=== PATIENT | male | born 1935 | race Caucasian/White ===

== ENCOUNTER 2023-03-25 10:13 | Emergency (ER) | payer MEDICARE, BC ==
--- NOTE | 2023-03-25 10:52 | ED ---
Male Urogenital HPI - General Chief complaint: Urogenital Stated complaint: Problem urinating Time Seen by Provider: 03/25/23 10:19 Source: patient, RN notes reviewed Limitations: no limitations - History of Present Illness Initial comments: 87-year-old male presents emergency Department chief complaint of unable to urinate. Patient states he started having some urges of the last few days but states since last night he has had no urine output. Patient denies a history of UTI denies a history of BPH. Patient states his pressure again is unable to urinate denies fevers or chills no back pain no flank pain. - Related Data Previous Rx's Medication Instructions Recorded Tamsulosin [Flomax] 0.4 mg PO DAILY #14 cap 03/25/23 Allergies Allergy/AdvReac Type Severity Reaction Status Date / Time No Known Allergies Allergy Verified 03/25/23 10:18 Review of Systems ROS Statement: Those systems with pertinent positive or pertinent negative responses have been documented in the HPI. ROS Other: All systems not noted in ROS Statement are negative. Past Medical History Past Medical History: Diabetes Mellitus, Hypertension History of Any Multi-Drug Resistant Organisms: None Reported Past Surgical History: Hernia Repair Past Psychological History: No Psychological Hx Reported Smoking Status: Never smoker Past Alcohol Use History: None Reported Past Drug Use History: None Reported General Exam Limitations: no limitations General appearance: alert, in no apparent distress Head exam: Present: atraumatic, normocephalic, normal inspection Respiratory exam: Present: normal lung sounds bilaterally. Absent: respiratory distress, wheezes, rales, rhonchi, stridor Cardiovascular Exam: Present: regular rate, normal rhythm, normal heart sounds. Absent: systolic murmur, diastolic murmur, rubs, gallop, clicks GI/Abdominal exam: Present: soft, distended, tenderness, normal bowel sounds. Absent: guarding, rebound, rigid Back exam: Absent: CVA tenderness (R), CVA tenderness (L) Course Vital Signs 03/25/23 10:15 Temperature 98.1 F Pulse Rate 99 Respiratory 20 Rate Blood Pressure 163/85 O2 Sat by Pulse 96 Oximetry Medical Decision Making - Medical Decision Making Was pt. sent in by a medical professional or institution (, PA, FEEDER LOADER, urgent care, hospital, or correction...) When possible be specific @ -No Did you speak to anyone other than the patient for history (EMS, parent, family, police, friend...)? What history was obtained from this source @ -No Did you review nursing and triage notes (agree or disagree)? Why? @ -I reviewed and agree with nursing and triage notes Were old charts reviewed (outside hosp., previous admission, EMS record, old EKG, old radiological studies, urgent care reports/EKG's, correction records)? Report findings @ -No old charts were reviewed Differential Diagnosis (chest pain, altered mental status, abdominal pain women, abdominal pain men, vaginal bleeding, weakness, fever, dyspnea, syncope, headache, dizziness, GI bleed, back pain, seizure, CVA, palpatations, mental health, musculoskeletal)? @ -UTI, urinary retention EKG interpreted by me (3pts min.). @ -None X-rays interpreted by me (1pt min.). @ -None done CT interpreted by me (1pt min.). @ -None done U/S interpreted by me (1pt. min.). @ -None done What testing was considered but not performed or refused? (CT, X-rays, U/S, labs)? Why? @ -None What meds were considered but not given or refused? Why? @ -None Did you discuss the management of the patient with other professionals (yazan wilson i.e., Dr., PA, FEEDER LOADER, lab, RT, psych nurse, social studies teacher, controls design engineer, teacher, police liaison officer, case management manager)? Give summary @ -No Was smoking cessation discussed for >3mins.? @ -No Was critical care preformed (if so, how long)? @ -No Were there social determinants of health that impacted care today? How? (Homelessness, low income, unemployed, alcoholism, drug addiction, transportation, low edu. Level, literacy, decrease access to med. care, penitentiary, rehab)? @ -No Was there de-escalation of care discussed even if they declined (Discuss DNR or withdrawal of care, Hospice)? DNR status @ -No What co-morbidities impacted this encounter? (DM, HTN, Smoking, COPD, CAD, Cancer, CVA, ARF, Chemo, Hep., AIDS, mental health diagnosis, sleep apnea, morbid obesity)? @ -None Was patient admitted / discharged? Hospital course, mention meds given and route, prescriptions, significant lab abnormalities, going to OR and other pertinent info. @ -Kingsley catheter is placed coming abdominal pain has resolved. Patient will be discharged with Kingsley catheter in place and follow-up with urology. Undiagnosed new problem with uncertain prognosis? @ -No Drug Therapy requiring intensive monitoring for toxicity (Heparin, Nitro, Insulin, Cardizem)? @ -No Were any procedures done? @ -No Diagnosis/symptom? @ -Urinary retention Acute, or Chronic, or Acute on Chronic? @ -Acute] Uncomplicated (without systemic symptoms) or Complicated (systemic symptoms)? @ -Uncomplicated Side effects of treatment? @ -No Exacerbation, Progression, or Severe Exacerbation? @ -No Poses a threat to life or bodily function? How? (Chest pain, [place], [place], pneumonia, PE, COPD, DKA, ARF, appy, cholecystitis, CVA, Diverticulitis, Homicidal, Suicidal, threat to staff... and all critical care pts) @ -No - Lab Data Lab Results 03/25/23 Range/Units 10:50 Urine Color Yellow Urine Appearance Clear (Clear) Urine pH 7.0 (5.0-8.0) Ur Specific [place] 1.014 (1.001-1.035) Urine Protein 3+ H (Negative) Urine Glucose (UA) Negative (Negative) Urine Ketones Negative (Negative) Urine Blood Large H (Negative) Urine Nitrite Negative (Negative) Urine Bilirubin Negative (Negative) Urine Urobilinogen <2.0 (<2.0) mg/dL Ur Leukocyte Esterase Negative (Negative) Urine RBC >182 H (0-5) /hpf Urine WBC 4 (0-5) /hpf Disposition Clinical Impression: Urinary retention Disposition: HOME SELF-CARE Condition: Stable Instructions (If sedation given, give patient instructions): Urinary Retention in Men (ED) Additional Instructions: Please return to the Emergency Department if symptoms worsen or any other concerns. Prescriptions: Tamsulosin [Flomax] 0.4 mg PO DAILY #14 cap Is patient prescribed a controlled substance at d/c from ED?: No Referrals: Ryne Mcginnis MD [Primary Care Provider] - 1-2 days Mathew Wright MD [STAFF PHYSICIAN] - 1-2 days Time of Disposition: 11:13
[2023-03-25 11:09] LABS: Appearance,Urine Clear (Clear); Bilirubin,Urine Negative (Negative); Blood,Urine Large (Negative); Color,Urine Yellow; Glucose,Urine (UA) Negative (Negative); Ketones,Urine Negative (Negative); Leukocyte Esterase,Urine Negative (Negative); Nitrite,Urine Negative (Negative); Protein,Urine 3+ (Negative); RBC,Urine >182 /hpf (0-5); Specific Gravity,Urine 1.014 (1.001-1.035); Urobilinogen,Urine <2.0 mg/dL (<2.0); WBC,Urine 4 /hpf (0-5)
[2023-03-25 11:39] VITALS: BP 129/78; PULSE 72; RESP 17; TEMP 97.8
== END 2023-03-25 11:28 | disposition home or self-care (01) ==
LOC: EC 10:13
DX: R33.9 Retention of urine, unspecified (principal); I10 Essential (primary) hypertension; E11.9 Type 2 diabetes mellitus without complications
CPT/HCPCS: 51702; 81001; 99283

== ENCOUNTER 2023-03-26 07:26 | Inpatient (IN) | payer MEDICARE, BC ==
[2023-03-26 07:33] LABS: Glucose,Whole Blood 59 mg/dL (70-110)
[2023-03-26 07:47] LABS: Glucose,Whole Blood 50 mg/dL (70-110)
[2023-03-26] MEDS ORDERED: SODIUM CHLORIDE 0.9% 500 ML 500 ML IV ONE (07:48)
[2023-03-26] MEDS ORDERED: DEXTROSE 50% SYRINGE 50 ML IVP STA (07:48)
--- NOTE | 2023-03-26 08:01 | ED ---
General Adult HPI - General Chief complaint: Altered Mental Status Stated complaint: out of sorts acting odd Time Seen by Provider: 03/26/23 07:29 Source: patient, RN notes reviewed, old records reviewed Mode of arrival: ambulatory Limitations: no limitations - History of Present Illness Initial comments: Patient is an 87-year-old female presents emergency Department for altered mental status. Is brought in by daughters. Patient's weight is currently in the hospital recovering from multiple cardiac stents. Patient has a history of hypertension, and some dependent diabetes. He came in yesterday for urinary retention. Kingsley catheter was placed. Was discharged home. Lives by himself. Patient currently is alert and oriented 2. Is confused to year. Normally alert and oriented 3. Patient currently denies any complaints. States he woke up somewhat confused and fell. It is not believe he lost consciousness. Does not believe he hit his head. Has no injuries. Denies any other complaints other than confusion at this time. Presents for further evaluation at this time. Is not on blood thinners per family. Family did not check the patient's blood sugar at home. Patient's usually helps take care of him and family is been trying to cover for him. - Related Data Home Medications Medication Instructions Recorded Confirmed INSULIN LISPRO (HumaLOG) [humaLOG] 10 units SQ AC-BID 03/26/23 03/26/23 Insulin Glargine [Lantus Vial] 20 units SQ DAILY 03/26/23 03/26/23 Losartan [Cozaar] 50 mg PO DAILY 03/26/23 03/26/23 Metoprolol Tartrate [Lopressor] 100 mg PO DAILY 03/26/23 03/26/23 Potassium Chloride ER [K-Dur 20] 20 meq PO TID 03/26/23 03/26/23 Simvastatin 10 mg PO HS 03/26/23 03/26/23 allopurinoL [Zyloprim] 300 mg PO DAILY 03/26/23 03/26/23 cloNIDine HCL 0.1 mg PO BID 03/26/23 03/26/23 hydroCHLOROthiazide [Hydrodiuril] 50 mg PO BID 03/26/23 03/26/23 minoxidiL 10 mg PO DAILY 03/26/23 03/26/23 Previous Rx's Medication Instructions Recorded Tamsulosin [Flomax] 0.4 mg PO DAILY #14 cap 03/25/23 Allergies Allergy/AdvReac Type Severity Reaction Status Date / Time No Known Allergies Allergy Verified 03/26/23 09:57 Review of Systems ROS Statement: Those systems with pertinent positive or pertinent negative responses have been documented in the HPI. Review of Systems: CONST: Denies fever EYES: Denies blurry vision ENT: Denies nasal congestion C/V: Denies Chest pain RESP: Denies shortness of breath GI: Denies abdominal pain : Denies dysuria SKIN: Denies rash. MSK: Denies joint pain. NEURO: Denies headache ROS Other: All systems not noted in ROS Statement are negative. Past Medical History Past Medical History: Diabetes Mellitus, Hypertension History of Any Multi-Drug Resistant Organisms: None Reported Past Surgical History: Hernia Repair Past Psychological History: No Psychological Hx Reported Smoking Status: Never smoker Past Alcohol Use History: None Reported Past Drug Use History: None Reported General Exam - General Exam Comments Initial Comments: General: Appears in no acute distress. HEAD: Normal with no signs of head trauma. EYES: PERRLA, EOMI, conjunctiva normal, no discharge. Pupils are 3 mm and equal bilaterally. ENT: Hearing grossly intact, normal oropharynx. RESPIRATORY: Clear breath sounds bilaterally. No wheezes, rales, or rhonchi. C/V: Regular rate and rhythm. S1 and S2 auscultated, no significant edema, peripheral pulses 2+ and intact throughout ABD: Abd is soft, nontender, nondistended EXT: Normal range of motion, no obvious deformity SKIN: No rashes or lesions observed on exposed skin. NEURO: Alert and oriented 2 at this time, confused to year/ time. No obvious focal neurological deficits otherwise. No focal weakness or sensory deficits. Difficult to obtain reliable NIH secondary to difficulty with obeying commands. Patient does have some difficulty bilaterally with finger to nose testing. He continues to reach for my face. Limitations: no limitations Course Vital Signs 03/26/23 03/26/23 03/26/23 07:28 07:34 08:34 Temperature 97 F L Pulse Rate 92 87 86 Respiratory 18 20 16 Rate Blood Pressure 112/78 117/58 142/79 O2 Sat by Pulse 98 98 98 Oximetry 03/26/23 10:00 Temperature Pulse Rate 75 Respiratory 20 Rate Blood Pressure 141/75 O2 Sat by Pulse 98 Oximetry Medical Decision Making - Medical Decision Making Was pt. sent in by a medical professional or institution (ALE Duron, DRY CLEANING MACHINE OPERATOR, urgent care, hospital, or [place] [facility] care facility...) When possible be specific @ -No Did you speak to anyone other than the patient for history (EMS, parent, family, police, friend...)? What history was obtained from this source @ -Yes, patient's daughters were at bedside and provides most of patient's recent past medical history. Did you review nursing and triage notes (agree or disagree)? Why? @ -I reviewed and agree with nursing and triage notes Were old charts reviewed (outside hosp., previous admission, EMS record, old EKG, old radiological studies, urgent care reports/EKG's, [place] [facility] facility records)? Report findings @ -Old charts reviewed Differential Diagnosis (chest pain, altered mental status, abdominal pain women, abdominal pain men, vaginal bleeding, weakness, fever, dyspnea, syncope, headache, dizziness, GI bleed, back pain, seizure, CVA, palpatations, mental health, musculoskeletal)? @ -Differential Altered Mental Status: Hypoglycemia, DKA, hypercapnia, ETOH, overdose, CO poisoning, trauma, myxedema coma, HTN encephalopathy, infection, encephalitis, psychosis, intercranial hemorrhage, hepatic encephalopathy, meningitis, CVA, this is not meant to be an all-inclusive list EKG interpreted by me (3pts min.). @ -As above X-rays interpreted by me (1pt min.). @ -Chest x-ray reveals possible pneumonia versus nonspecific ST-T congestion. CT interpreted by me (1pt min.). @ -CT brain reveals findings concerning for possible subacute CVA in the left PICA territory. CT angiogram reveals chronic stenosis but no obvious acute blockage. U/S interpreted by me (1pt. min.). @ -Ultrasound of the bladder and kidneys reveals dilation of the right collecti ng system versus renal cysts. What testing was considered but not performed or refused? (CT, X-rays, U/S, labs)? Why? @ -None What meds were considered but not given or refused? Why? @ -None Did you discuss the management of the patient with other professionals (professionals i.e. ALE Duron, DRY CLEANING MACHINE OPERATOR, lab, RT, psych nurse, social media developer, rn internal medicine, teacher, forest fire control officer, case preparer and liner)? Give summary @ -I discussed with Dr. Rogers of neuro crit care who was in agreement with plan for medical management recommended Brilinta, neuro consult, aspirin, MRI. I discussed this with Dr. Chaudhry of neurology who was in agreement with plan. Nephrology was consulted. I spoke with the admitting physician Dr. Mcginnis who accepted the patient. Patient's family was in agreement this plan. Was smoking cessation discussed for >3mins.? @ -No Was critical care preformed (if so, how long)? @ -yes, 46 minutes Were there social determinants of health that impacted care today? How? (Homelessness, low income, unemployed, alcoholism, drug addiction, transportation, low edu. Level, literacy, decrease access to med. care, custodial, rehab)? @ -No Was there de-escalation of care discussed even if they declined (Discuss DNR or withdrawal of care, Hospice)? DNR status @ -No What co-morbidities impacted this encounter? (DM, HTN, Smoking, COPD, CAD, Cancer, CVA, ARF, Chemo, Hep., AIDS, mental health diagnosis, sleep apnea, mo rbid obesity)? @ -Insulin dependent diabetes Was patient admitted / discharged? Hospital course, mention meds given and route, prescriptions, significant lab abnormalities, going to OR and other pertinent info. @ -Based on the patient's presentation and physical exam, concern for new onset altered mental status. Agreement this morning. Patient's blood sugar was in the 50s and triage. Was given an orange juice and repeated at bedside while I was evaluating him was once again 50. Patient will be given the D50. Patient also had a fall this morning. We will obtain CT brain because of this as well as altered mental status workup. Patient received the amp of D50 as well as 500 mL fluid bolus. Vital signs otherwise within acceptable limits. Patient's Kingsley catheter is adequately draining however the urine is dark red in color. We will irrigate it. Patient and patient's family in agreement with this plan. EKG shows new-onset A. fib Patient's imaging is remarkable for possible subacute CVA. Patient also has a t ypical finding on chest x-ray likely related to pulmonary vascular congestion versus atypical pneumonia. Patient's labs remarkable for a leukocytosis of 17.5. Patient has an AK I with her elevated BUN of 49 and creatinine 3.4 with no known baseline. Patient's hypoglycemia did improve following an amp of D50 being administered. Lactic acid is 2.5. Urine is concerning for possible UTI. On reevaluation, patient is more alert but still confused at this time. Is having a difficult time following commands still. Difficult to obtain a reliable neurological exam. I discussed with him as well as patient's family regarding obtaining CT angiogram with contrast in the setting of his poor renal function. I also discussed with neurology control chemist Dr. Chaudhry who recommended obtaining the imaging. I did discuss this with family and they were in agreement with the plan as well. Patient is being admitted either way and a pelvic follow-up on his kidney function following the imaging. CT angiogram reveals stenosis but no obvious acute occlusion. On reevaluation, patient's symptoms have resolved. He is alert and oriented 4. NIH at this time as 0 for any acute neurological deficits. He is following all commands. [facility] who was in agreement with plan for medical management recommended Brilinta, neuro consult, aspirin, MRI. I discussed this with Dr. Chaudhry of neurology who was in agreement with plan. Nephrology was consulted. I spoke with the admitting physician Dr. Mcginnis who accepted the patient. Patient's family was in agreement this plan. Up to the patient as well as daughters on plan and answered all their questions. Undiagnosed new problem with uncertain prognosis? @ -No Drug Therapy requiring intensive monitoring for toxicity (Heparin, Nitro, In sulin, Cardizem)? @ -No Were any procedures done? @ -No Diagnosis/symptom? @ -Hypoglycemia in the setting of insulin-dependent diabetes Acute, or Chronic, or Acute on Chronic? @ -Acute Uncomplicated (without systemic symptoms) or Complicated (systemic symptoms)? @ -Complicate Side effects of treatment? @ -No Exacerbation, Progression, or Severe Exacerbation? @ -No Poses a threat to life or bodily function? How? (Chest pain, USA, CT, pneumonia, PE, COPD, DKA, ARF, appy, cholecystitis, CVA, Diverticulitis, Homicidal, Suicidal, threat to staff... and all critical care pts) @ -Yes Diagnosis/symptom? @ -ESTHER, UTI, possible atypical pneumonia Acute, or Chronic, or Acute on Chronic? @ -Acute Uncomplicated (without systemic symptoms) or Complicated (systemic symptoms)? @ -Complicated Side effects of treatment? @ -none Exacerbation, Progression, or Severe Exacerbation] @ -no Poses a threat to life or bodily function? @ -yes Diagnosis/symptom? @ -Altered mental status likely secondary to other etiology. Cannot rule out CVA. Acute, or Chronic, or Acute on Chronic? @ -Acute Uncomplicated (without systemic symptoms) or Complicated (systemic symptoms)? @ -Complicated Side effects of treatment? @ -none Exacerbation, Progression, or Severe Exacerbation] @ -no Poses a threat to life or bodily function? @ -Yes Diagnosis/symptom? @ -New-onset A. fib Acute, or Chronic, or Acute on Chronic? @ -Acute Uncomplicated (without systemic symptoms) or Complicated (systemic symptoms)? @ -complicated Side effects of treatment? @ -none Exacerbation, Progression, or Severe Exacerbation] @ -no Poses a threat to life or bodily function? @ -Possibly - Lab Data Result diagrams: 03/26/23 07:48 03/26/23 07:48 Lab Results 03/26/23 03/26/23 03/26/23 Range/Units 07:32 07:46 07:48 WBC 17.5 H (3.8-10.6) k/uL RBC 5.31 (4.30-5.90) m/uL Hgb 15.3 (13.0-17.5) gm/dL Hct 47.2 (39.0-53.0) % MCV 88.9 (80.0-100.0) fL MCH 28.9 (25.0-35.0) pg MCHC 32.5 (31.0-37.0) g/dL RDW 15.8 H (11.5-15.5) % Plt Count 173 (150-450) k/uL MPV 7.7 Neutrophils % 87 % Lymphocytes % 6 % Monocytes % 5 % Eosinophils % 0 % Basophils % 0 % Neutrophils # 15.3 H (1.3-7.7) k/uL Lymphocytes # 1.1 (1.0-4.8) k/uL Monocytes # 0.9 (0-1.0) k/uL Eosinophils # 0.0 (0-0.7) k/uL Basophils # 0.0 (0-0.2) k/uL PT (10.0-12.5) sec INR (<1.2) APTT (22.0-30.0) sec Sodium (137-145) mmol/L Potassium (3.5-5.1) mmol/L Chloride (98-107) mmol/L Carbon Dioxide (22-30) mmol/L Anion Gap mmol/L BUN (9-20) mg/dL Creatinine (0.66-1.25) mg/dL Est GFR (CKD-EPI)AfAm (>60 ml/min/1.73 sqM) Est GFR (CKD-EPI)NonAf (>60 ml/min/1.73 sqM) Glucose (74-99) mg/dL POC Glucose (mg/dL) 59 L 50 L (70-110) mg/dL POC Glu Executive Relations Specialist ID Tone Ren[place] Kaylea Lactic Ac Sepsis Rflx Plasma Lactic Acid Ruslan (0.7-2.0) mmol/L Calcium (8.4-10.2) mg/dL Total Bilirubin (0.2-1.3) mg/dL AST (17-59) U/L ALT (4-49) U/L Alkaline Phosphatase (38-126) U/L Ammonia (<30) umol/L Total Protein (6.3-8.2) g/dL Albumin (3.5-5.0) g/dL Urine Color Urine Appearance (Clear) Urine pH (5.0-8.0) Ur Specific [place] (1.001-1.035) Urine Protein (Negative) Urine Glucose (UA) (Negative) Urine Ketones (Negative) Urine Blood (Negative) Urine Nitrite (Negative) Urine Bilirubin (Negative) Urine Urobilinogen (<2.0) mg/dL Ur Leukocyte Esterase (Negative) Urine RBC (0-5) /hpf Urine WBC (0-5) /hpf Urine Bacteria (None) /hpf Urine Opiates Screen (NotDetected) Ur Oxycodone Screen (NotDetected) Urine Methadone Screen (NotDetected) Ur Propoxyphene Screen (NotDetected) Ur Barbiturates Screen (NotDetected) U Tricyclic Antidepress (NotDetected) Ur Phencyclidine Scrn (NotDetected) Ur Amphetamines Screen (NotDetected) U Methamphetamines Scrn (NotDetected) U Benzodiazepines Scrn (NotDetected) Urine Cocaine Screen (NotDetected) U Marijuana (THC) Screen (NotDetected) Serum Alcohol mg/dL Influenza Type A (PCR) (Not Detectd) Influenza Type B (PCR) (Not Detectd) RSV (PCR) (Not Detectd) SARS-CoV-2 (PCR) (Not Detectd) 03/26/23 03/26/23 03/26/23 Range/Units 07:48 07:48 07:48 WBC (3.8-10.6) k/uL RBC (4.30-5.90) m/uL Hgb (13.0-17.5) gm/dL Hct (39.0-53.0) % MCV (80.0-100.0) fL MCH (25.0-35.0) pg MCHC (31.0-37.0) g/dL RDW (11.5-15.5) % Plt Count (150-450) k/uL MPV Neutrophils % % Lymphocytes % % Monocytes % % Eosinophils % % Basophils % % Neutrophils # (1.3-7.7) k/uL Lymphocytes # (1.0-4.8) k/uL Monocytes # (0-1.0) k/uL Eosinophils # (0-0.7) k/uL Basophils # (0-0.2) k/uL PT 13.8 H (10.0-12.5) sec INR 1.3 H (<1.2) APTT 28.6 (22.0-30.0) sec Sodium 141 (137-145) mmol/L Potassium 4.0 (3.5-5.1) mmol/L Chloride 102 (98-107) mmol/L Carbon Dioxide 27 (22-30) mmol/L Anion Gap 12 mmol/L BUN 49 H (9-20) mg/dL Creatinine 3.40 H (0.66-1.25) mg/dL Est GFR (CKD-EPI)AfAm 18 (>60 ml/min/1.73 sqM) Est GFR (CKD-EPI)NonAf 16 (>60 ml/min/1.73 sqM) Glucose 75 (74-99) mg/dL POC Glucose (mg/dL) (70-110) mg/dL POC Glu Executive Relations Specialist ID Lactic Ac Sepsis Rflx Plasma Lactic Acid Rusaln (0.7-2.0) mmol/L Calcium 9.2 (8.4-10.2) mg/dL Total Bilirubin 1.2 (0.2-1.3) mg/dL AST 45 (17-59) U/L ALT 23 (4-49) U/L Alkaline Phosphatase 80 (38-126) U/L Ammonia (<30) umol/L Total Protein 6.5 (6.3-8.2) g/dL Albumin 3.5 (3.5-5.0) g/dL Urine Color Dark Brown Urine Appearance Turbid (Clear) Urine pH 6.0 (5.0-8.0) Ur Specific [place] 1.022 (1.001-1.035) Urine Protein 3+ H (Negative) Urine Glucose (UA) 1+ H (Negative) Urine Ketones Negative (Negative) Urine Blood Large H (Negative) Urine Nitrite Negative (Negative) Urine Bilirubin Negative (Negative) Urine Urobilinogen <2.0 (<2.0) mg/dL Ur Leukocyte Esterase Small H (Negative) Urine RBC >182 H (0-5) /hpf Urine WBC 142 H (0-5) /hpf Urine Bacteria Rare H (None) /hpf Urine Opiates Screen Not Detected (NotDetected) Ur Oxycodone Screen Not Detected (NotDetected) Urine Methadone Screen Not Detected (NotDetected) Ur Propoxyphene Screen Not Detected (NotDetected) Ur Barbiturates Screen Not Detected (NotDetected) U Tricyclic Antidepress Not Detected (NotDetected) Ur Phencyclidine Scrn Not Detected (NotDetected) Ur Amphetamines Screen Not Detected (NotDetected) U Methamphetamines Scrn Not Detected (NotDetected) U Benzodiazepines Scrn Not Detected (NotDetected) Urine Cocaine Screen Not Detected (NotDetected) U Marijuana (THC) Screen Not Detected (NotDetected) Serum Alcohol <10 mg/dL Influenza Type A (PCR) (Not Detectd) Influenza Type B (PCR) (Not Detectd) RSV (PCR) (Not Detectd) SARS-CoV-2 (PCR) (Not Detectd) 03/26/23 03/26/23 03/26/23 Range/Units 07:48 07:48 08:32 WBC (3.8-10.6) k/uL RBC (4.30-5.90) m/uL Hgb (13.0-17.5) gm/dL Hct (39.0-53.0) % MCV (80.0-100.0) fL MCH (25.0-35.0) pg MCHC (31.0-37.0) g/dL RDW (11.5-15.5) % Plt Count (150-450) k/uL MPV Neutrophils % % Lymphocytes % % Monocytes % % Eosinophils % % Basophils % % Neutrophils # (1.3-7.7) k/uL Lymphocytes # (1.0-4.8) k/uL Monocytes # (0-1.0) k/uL Eosinophils # (0-0.7) k/uL Basophils # (0-0.2) k/uL PT (10.0-12.5) sec INR (<1.2) APTT (22.0-30.0) sec Sodium (137-145) mmol/L Potassium (3.5-5.1) mmol/L Chloride (98-107) mmol/L Carbon Dioxide (22-30) mmol/L Anion Gap mmol/L BUN (9-20) mg/dL Creatinine (0.66-1.25) mg/dL Est GFR (CKD-EPI)AfAm (>60 ml/min/1.73 sqM) Est GFR (CKD-EPI)NonAf (>60 ml/min/1.73 sqM) Glucose (74-99) mg/dL POC Glucose (mg/dL) (70-110) mg/dL POC Glu Executive Relations Specialist ID Lactic Ac Sepsis Rflx Y Plasma Lactic Acid Ruslan 2.5 H* (0.7-2.0) mmol/L Calcium (8.4-10.2) mg/dL Total Bilirubin (0.2-1.3) mg/dL AST (17-59) U/L ALT (4-49) U/L Alkaline Phosphatase (38-126) U/L Ammonia <9 (<30) umol/L Total Protein (6.3-8.2) g/dL Albumin (3.5-5.0) g/dL Urine Color Urine Appearance (Clear) Urine pH (5.0-8.0) Ur Specific [place] (1.001-1.035) Urine Protein (Negative) Urine Glucose (UA) (Negative) Urine Ketones (Negative) Urine Blood (Negative) Urine Nitrite (Negative) Urine Bilirubin (Negative) Urine Urobilinogen (<2.0) mg/dL Ur Leukocyte Esterase (Negative) Urine RBC (0-5) /hpf Urine WBC (0-5) /hpf Urine Bacteria (None) /hpf Urine Opiates Screen (NotDetected) Ur Oxycodone Screen (NotDetected) Urine Methadone Screen (NotDetected) Ur Propoxyphene Screen (NotDetected) Ur Barbiturates Screen (NotDetected) U Tricyclic Antidepress (NotDetected) Ur Phencyclidine Scrn (NotDetected) Ur Amphetamines Screen (NotDetected) U Methamphetamines Scrn (NotDetected) U Benzodiazepines Scrn (NotDetected) Urine Cocaine Screen (NotDetected) U Marijuana (THC) Screen (NotDetected) Serum Alcohol mg/dL Influenza Type A (PCR) Not Detected (Not Detectd) Influenza Type B (PCR) Not Detected (Not Detectd) RSV (PCR) Not Detected (Not Detectd) SARS-CoV-2 (PCR) Not Detected (Not Detectd) 03/26/23 Range/Units 09:06 WBC (3.8-10.6) k/uL RBC (4.30-5.90) m/uL Hgb (13.0-17.5) gm/dL Hct (39.0-53.0) % MCV (80.0-100.0) fL MCH (25.0-35.0) pg MCHC (31.0-37.0) g/dL RDW (11.5-15.5) % Plt Count (150-450) k/uL MPV Neutrophils % % Lymphocytes % % Monocytes % % Eosinophils % % Basophils % % Neutrophils # (1.3-7.7) k/uL Lymphocytes # (1.0-4.8) k/uL Monocytes # (0-1.0) k/uL Eosinophils # (0-0.7) k/uL Basophils # (0-0.2) k/uL PT (10.0-12.5) sec INR (<1.2) APTT (22.0-30.0) sec Sodium (137-145) mmol/L Potassium (3.5-5.1) mmol/L Chloride (98-107) mmol/L Carbon Dioxide (22-30) mmol/L Anion Gap mmol/L BUN (9-20) mg/dL Creatinine (0.66-1.25) mg/dL Est GFR (CKD-EPI)AfAm (>60 ml/min/1.73 sqM) Est GFR (CKD-EPI)NonAf (>60 ml/min/1.73 sqM) Glucose (74-99) mg/dL POC Glucose (mg/dL) 100 (70-110) mg/dL POC Glu Executive Relations Specialist ID Marivel Avila Lactic Ac Sepsis Rflx Plasma Lactic Acid Ruslan (0.7-2.0) mmol/L Calcium (8.4-10.2) mg/dL Total Bilirubin (0.2-1.3) mg/dL AST (17-59) U/L ALT (4-49) U/L Alkaline Phosphatase (38-126) U/L Ammonia (<30) umol/L Total Protein (6.3-8.2) g/dL Albumin (3.5-5.0) g/dL Urine Color Urine Appearance (Clear) Urine pH (5.0-8.0) Ur Specific [place] (1.001-1.035) Urine Protein (Negative) Urine Glucose (UA) (Negative) Urine Ketones (Negative) Urine Blood (Negative) Urine Nitrite (Negative) Urine Bilirubin (Negative) Urine Urobilinogen (<2.0) mg/dL Ur Leukocyte Esterase (Negative) Urine RBC (0-5) /hpf Urine WBC (0-5) /hpf Urine Bacteria (None) /hpf Urine Opiates Screen (NotDetected) Ur Oxycodone Screen (NotDetected) Urine Methadone Screen (NotDetected) Ur Propoxyphene Screen (NotDetected) Ur Barbiturates Screen (NotDetected) U Tricyclic Antidepress (NotDetected) Ur Phencyclidine Scrn (NotDetected) Ur Amphetamines Screen (NotDetected) U Methamphetamines Scrn (NotDetected) U Benzodiazepines Scrn (NotDetected) Urine Cocaine Screen (NotDetected) U Marijuana (THC) Screen (NotDetected) Serum Alcohol mg/dL Influenza Type A (PCR) (Not Detectd) Influenza Type B (PCR) (Not Detectd) RSV (PCR) (Not Detectd) SARS-CoV-2 (PCR) (Not Detectd) - EKG Data -: EKG Interpreted by Me EKG Comments: 12-lead Electrocardiogram Interpretation Note EKG was reviewed and interpreted by myself. 12-lead ECG performed at 0913 is interpreted by me as revealing atrial fibrillation at a rate of 92 beats per minute. [place] is normal. QRS duration is 100 ms, QTc is 451 ms.. There were no ST or T wave abnormalities to suggest myocardial ischemia or injury. R wave prog ression across the precordium was satisfactory. By my interpretation this EKG is non-diagnostic for acute ischemia. Disposition Clinical Impression: Altered mental status, Hypoglycemia, ESTHER (acute kidney injury), UTI (urinary tract infection), Atrial fibrillation Disposition: ADMITTED IP TO THIS HOSP Condition: Serious Time of Disposition: 12:45
[2023-03-26 08:13] LABS: Basophils % (A) 0 %; Eosinophils % (A) 0 %; HCT 47.2 % (39.0-53.0); HGB 15.3 gm/dL (13.0-17.5); Lymphocytes # (A) 1.1 k/uL (1.0-4.8); Lymphocytes % (A) 6 %; MCH 28.9 pg (25.0-35.0); MCHC 32.5 g/dL (31.0-37.0); MCV 88.9 fL (80.0-100.0); Mean Platelet Volume 7.7; Monocytes # (A) 0.9 k/uL (0-1.0); Monocytes % (A) 5 %; Neutrophils # (A) 15.3 k/uL (1.3-7.7); Neutrophils % (A) 87 %; Platelet Count 173 k/uL (150-450); RBC 5.31 m/uL (4.30-5.90); RDW 15.8 % (11.5-15.5); WBC 17.5 k/uL (3.8-10.6)
[2023-03-26 08:23] LABS: Appearance,Urine Turbid (Clear); Bacteria,Urine Rare /hpf; Bilirubin,Urine Negative (Negative); Blood,Urine Large (Negative); Color,Urine Dark Brown; Glucose,Urine (UA) 1+ (Negative); Ketones,Urine Negative (Negative); Leukocyte Esterase,Urine Small (Negative); Nitrite,Urine Negative (Negative); Protein,Urine 3+ (Negative); RBC,Urine >182 /hpf (0-5); Specific Gravity,Urine 1.022 (1.001-1.035); Urobilinogen,Urine <2.0 mg/dL (<2.0); WBC,Urine 142 /hpf (0-5)
[2023-03-26 08:29] LABS: ALT 23 U/L (4-49); AST 45 U/L (17-59); African American GFR (CKD) 18 (>60 ml/min/1.73 sqM); Albumin 3.5 g/dL (3.5-5.0); Alcohol <10 mg/dL; Alkaline Phosphatase 80 U/L (38-126); Anion Gap 12 mmol/L; Blood Urea Nitrogen 49 mg/dL (9-20); Calcium 9.2 mg/dL (8.4-10.2); Carbon Dioxide 27 mmol/L (22-30); Chloride 102 mmol/L (98-107); Glucose 75 mg/dL (74-99); Non-African American GFR(CKD) 16 (>60 ml/min/1.73 sqM); Sodium 141 mmol/L (137-145); Total Bilirubin 1.2 mg/dL (0.2-1.3); Total Protein 6.5 g/dL (6.3-8.2)
[2023-03-26 08:32] LABS: INR 1.3 (<1.2); Lactic Acid, Venous 2.5 mmol/L (0.7-2.0); Partial Thromboplastin Time 28.6 sec (22.0-30.0); Prothrombin Time 13.8 sec (10.0-12.5)
[2023-03-26] MEDS ORDERED: SODIUM CHLORIDE 0.9% 1,000 ML IV STA (08:40)
[2023-03-26] MEDS ORDERED: SODIUM CHLORIDE 0.9% 500 ML 500 ML IV STA (08:40)
[2023-03-26 08:43] LABS: Amphetamine Screen,Urine Not Detected (NotDetected); Barbiturate Screen,Urine Not Detected (NotDetected); Benzodiazepines Screen,Urine Not Detected (NotDetected); Cocaine Screen,Urine Not Detected (NotDetected); Methadone Screen, Urine Not Detected (NotDetected); Opiate Screen,Urine Not Detected (NotDetected); Oxycodone Screen, Urine Not Detected (NotDetected); Phencyclidine Screen,Urine Not Detected (NotDetected); Tricyclic Antidepressant,Urine Not Detected (NotDetected); Urn Cannabinoid Scrn Not Detected (NotDetected)
[2023-03-26 09:07] LABS: Glucose,Whole Blood 100 mg/dL (70-110)
--- NOTE | 2023-03-26 09:08 | XR ---
EXAMINATION TYPE: XR chest 2V DATE OF EXAM: 03/26/2023 COMPARISON: None HISTORY: 87-year-old male confusion, altered mental status TECHNIQUE: AP and lateral views FINDINGS: Heart borderline in size. Diffuse interstitial density. No consolidation or pleural effusion. IMPRESSION: Diffuse interstitial density. Correlate for possible bronchitis, asthma, pulmonary vascular congestio n, or atypical pneumonias.
--- NOTE | 2023-03-26 09:14 | CT ---
EXAMINATION TYPE: CT brain wo con DATE OF EXAM: 03/26/2023 COMPARISON: None HISTORY: 87-year-old male confusion, Altered mental status TECHNIQUE: Examination was done in axial plane without intravenous contrast. Coronal and sagittal r econstructions performed. CT DLP: 1226.4 mGycm Automated exposure control for dose reduction was used. FINDINGS: Moderate generalized supratentorial volume loss. Secondary mild prominence to the ventricular system. 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 There is hypodensity involving the left inferior cerebellum with associated sulcal effacement. No her niation or midline shift. There is no evidence of acute intracranial hemorrhage, or extra-axial fluid collection. There is no midline shift. Trace mucosal thickening ethmoid air cells. Leftward nasal septal deviation. Mastoid air cells well p neumatized. IMPRESSION: 1. Hypodensity and sulcal effacement inferior left cerebellum. Correlate for recent (subacute favored ) left PICA territory infarct. The degree of hypodensity favors greater than 6 hours in duration. No midline shift, herniation, or acute intracranial hemorrhage seen. 2. 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
--- NOTE | 2023-03-26 09:49 | US ---
EXAMINATION TYPE: US renals and bladder DATE OF EXAM: 03/26/2023 COMPARISON: NONE CLINICAL INDICATION: Male, 87 years old with history of ESTHER; EXAM MEASUREMENTS: Right Kidney: 11.5 x 5.1 x 5.4 cm Left Kidney: 10.3 x 5.3 x 5.0 cm Right Kidney: possible hydronephrosis vs. multiple cysts with largest measuring 3.8cm Left Kidney: limited visualization due to rib shadowing and overlying bowel gas Bladder: not distended, davis catheter IMPRESSION: 1. Dilation of the right collecting system versus peripelvic renal cysts. Correlate for more distal obstruction. 2. Davis Catheter in appropriate position.
[2023-03-26] MEDS ORDERED: ASPIRIN 325 MG TAB PO STA (12:11)
--- NOTE | 2023-03-26 12:16 | CT ---
EXAMINATION TYPE: CT angio head neck DATE OF EXAM: 03/26/2023 COMPARISON: Brain same day HISTORY: 87-year-old male Eval for CVA TECHNIQUE: Contiguous axial scanning of the head and neck performed with IV Contrast, patient injecte d with 65 ML mL of Isovue 370. Coronal/sagittal MIP reconstructions performed. CT DLP: 573 mGycm Automated exposure control for dose reduction was used. FINDINGS: NECK: Conventional arch vessel branching anatomy. The right common or right internal carotid arteries are widely patent. The left common and left internal carotid arteries are widely patent. Codominant vertebral arteries which are patent throughout their course. NASCET criteria was utilized. HEAD: The left PICA take off is seen. Right PICA takeoff not visualized. The V4 segment right vertebral art jl becomes slightly hypoplastic distally. Basilar artery is patent. There is persistent origin left posterior cerebral artery. Posterior circulation otherwise patent. The internal carotid arteries are patent. There is a 4 mm span of severe focal stenosis M1 left MCA prior to its bifurcation. Only one of the M 2 divisions are visualized. There is overall paucity of vascularity along the M2 and more distal bran ches on the left. IMPRESSION: NECK: 1. WIDELY PATENT VERTEBRAL AND CAROTID ARTERIES OF THE NECK. HEAD: 2. A 4 MM SPAN OF SEVERE FOCAL STENOSIS M1 SEGMENT LEFT MCA PRIOR TO ITS BIFURCATION. ONLY ONE OF THE LEFT M2 DIVISIONS ARE VISUALIZED AND THERE IS OVERALL PAUCITY OF VESSELS ALONG THE LEFT M2 AND MORE DISTAL MCA BRANCHES. CORRELATE FOR ANY FOCAL NEUROLOGIC DEFICITS LOCALIZED TO THE LEFT MCA TERRITORY.
[2023-03-26] MEDS ORDERED: NALOXONE 0.4 MG/ML 1 ML VIAL IV PRN (13:14)
--- NOTE | 2023-03-26 16:01 | P.CNNES ---
History of Present Illness Consult date: 03/26/23 Requesting physician: Imer Gupta Reason for Consult: concern for subacute stroke, confusion History of Present Illness: This is an 87-year-old gentleman who presented emergency department because of confusion. So the history is obtained from medical record since patient is not a great historian. Patient states that he's been having dizziness for the last few days and that's what brought to the hospital. He denies of any diplopia. Denies of any focal weakness. Denies of any vomiting. According to the [facility] department the patient presented because altered mental status and he was brought in by his daughters. Since the patient has underlying history of hypertension and diabetes and it seems that he came yesterday for urinary retention and Kingsley catheter was placed and was judged home and he seems that he woke up somewhat confused and fell and no loss of consciousness and does not believe he has had that's reported by the ED team. Some other workup during his hospital visit consisted of: Temp is 97 wbc is 17.5K. Patient sugar is in the 50s 50-59. His creatinine is 3.40 and I don't see prior creatinine to compare. Otherwise sodium, calcium, AST ALT are within normal limits. Ammonia is less than 9. Possible left acid venous 2.5. Urine analysis seems possible suggestive underlying acute UTI. Urine drug screen is not detected in the serum alcohol was less than 10. SARS-CoV-2, Influenza A/B, RSV PCR are not detected. CT head is reported as hypodensity and sulcal effacement inferior left cerebellum. Correlate for recent subacute favored left PICA territory infarct. The degree of hypodensity fevers greater than 6 hours in duration. No midline shift, herniation or acute intracranial hemorrhage seen. Moderate atrophy and old infarct right frontal parietal cortex. I personally reviewed the CT and I agree that there seems to be subacute hypodensity over the left cerebellar and i s seems the patient has old right frontal parietal. CT angiography of the neck is reported as widely patent vertebral and carotid the arteries of the neck. CT angiography of the head is reported as 4 mm span of severely focal stenosis M1 segment left MCA prior to its bifurcation. Only one of the left M2 division are visualized and there is overall possibly a vessel along the left M2 and more distal MCA branches. Correlate for any focal neurological deficit localized to the left MCA territory. Review of Systems Review of system: The 12 point system was reviewed and apparent positive and negative per HPI. Past Medical History Past Medical History: Diabetes Mellitus, Hypertension History of Any Multi-Drug Resistant Organisms: None Reported Past Surgical History: Hernia Repair Past Psychological History: No Psychological Hx Reported Smoking Status: Never smoker Past Alcohol Use History: None Reported Past Drug Use History: None Reported Medications and Allergies Home Medications Medication Instructions Recorded Confirmed Type Tamsulosin [Flomax] 0.4 mg PO DAILY #14 cap 03/25/23 03/26/23 Rx INSULIN LISPRO (HumaLOG) [humaLOG] 10 units SQ AC-BID 03/26/23 03/26/23 History Insulin Glargine [Lantus Vial] 20 units SQ DAILY 03/26/23 03/26/23 History Losartan [Cozaar] 50 mg PO DAILY 03/26/23 03/26/23 History Metoprolol Tartrate [Lopressor] 100 mg PO DAILY 03/26/23 03/26/23 History Potassium Chloride ER [K-Dur 20] 20 meq PO TID 03/26/23 03/26/23 History Simvastatin 10 mg PO HS 03/26/23 03/26/23 History allopurinoL [Zyloprim] 300 mg PO DAILY 03/26/23 03/26/23 History cloNIDine HCL 0.1 mg PO BID 03/26/23 03/26/23 History hydroCHLOROthiazide [Hydrodiuril] 50 mg PO BID 03/26/23 03/26/23 History minoxidiL 10 mg PO DAILY 03/26/23 03/26/23 History Allergies Allergy/AdvReac Type Severity Reaction Status Date / Time No Known Allergies Allergy Verified 03/26/23 09:57 Physical Examination - Vital Signs Vital Signs: Vital Signs Temp Pulse Resp BP Pulse Ox 03/26/23 14:00 84 18 141/76 97 03/26/23 10:00 75 20 141/75 98 03/26/23 08:34 86 16 142/79 98 03/26/23 07:34 87 20 117/58 98 03/26/23 07:28 97 F L 92 18 112/78 98 Intake and Output 03/26/23 03/26/23 03/26/23 06:59 14:59 22:59 Other: Weight 99.79 kg GENERAL: The patient is lying in bed and is not in acute distress. NEUROLOGICAL: Examination is limited because of his overall cooperation and condition. The patient is a minimally drowsy but is awakeable to voice. He is oriented to self and he stated he is in the hospital. He stated that the year is 2019. He is able to identify objects at such as pen and watch. No aphasia from the limited language. Pupils are round equal reactive to light. The visual rodriguez is full to consultation. No facial weakness. No dysarthria. Motor: hard to assess individual muscle strength but was able to lift up bilateral upper extremity equally above gravity. He is able to lift bilateral lower extreme a above gravity equally as well. Cerebellar: He is able to perform the finger to nose but I had to ask him multiple times for him to perform the action and is seems that he was able to do a more brisk on the right than the left Results - Laboratory Findings CBC and BMP: 03/26/23 07:48 03/26/23 07:48 Abnormal Lab Findings: Abnormal Labs 03/26/23 03/26/23 03/26/23 07:32 07:46 07:48 WBC 17.5 H RDW 15.8 H Neutrophils # 15.3 H PT INR BUN Creatinine POC Glucose (mg/dL) 59 L 50 L Plasma Lactic Acid Ruslan Urine Protein Urine Glucose (UA) Urine Blood Ur Leukocyte Esterase Urine RBC Urine WBC Urine Bacteria 03/26/23 03/26/23 03/26/23 07:48 07:48 07:48 WBC RDW Neutrophils # PT 13.8 H INR 1.3 H BUN 49 H Creatinine 3.40 H POC Glucose (mg/dL) Plasma Lactic Acid Ruslan Urine Protein 3+ H Urine Glucose (UA) 1+ H Urine Blood Large H Ur Leukocyte Esterase Small H Urine RBC >182 H Urine WBC 142 H Urine Bacteria Rare H 03/26/23 07:48 WBC RDW Neutrophils # PT INR BUN Creatinine POC Glucose (mg/dL) Plasma Lactic Acid Ruslan 2.5 H* Urine Protein Urine Glucose (UA) Urine Blood Ur Leukocyte Esterase Urine RBC Urine WBC Urine Bacteria Assessment and Plan Assessment: This is an 87-year-old gentleman who presented to the emergency department because of altered mental status and he notified me that he had dizziness.. Seems the patient presented yesterday because of urinary retention and had a Kingsley catheter placed and was discharged home. In the hospital sugar was as low as [address] head shows evidence of for possible subacute left cerebellar stroke. CT angiography shows stenosis over the M1 and M2 region. 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 Has acute A-fib on EKG. Stenosis over the M1/M2 region on the CT angiography possible isolated: Rule out MCA stroke Altered mental status is seems multifactorial due to hypoglycemic encephalopathy, kidney insufficiency and having the urinary retention, and probable subacute stroke with acute UTI New onset a-fib on EKG. Hypoglycemia Urinary retention Probable acute UTI Diabetes mellitus Hypertension Plan: Spoke with the ED physician and he spoke with the stroke intervention is Dr. Rogers and no intervention for stenosis over MCA territory and recommended medical management. He recommended aspirin and Brilinta. So patient is started on ASA 81mg daily and Brilinta 90mg 1 tab tid. Posture the patient on Lipitor 80 mg daily at bedtime for second stroke prophylaxis I ordered the MRI the brain and 2D echo. I also ordered TSH, vitamin B-12, folate, ammonia level because of his confusion to rule out any other causes. Continue neuro checks Cardiac monitoring PT OT and [facility] are consulted Please avoid any hypoglycemic event or defer the management to primary team Cardiology is consulted for the new onset A. fib Nurse Ortho consulted for the AK I with a UTI. For DVT prophylaxis I started the patient on subcu heparin 5000 Hz every 12 hours. Thank you for the consultation. Time with Patient: Greater than 30
[2023-03-26 17:41] LABS: Lactic Acid, Venous 1.2 mmol/L (0.7-2.0)
[2023-03-26] MEDS: TICAGRELOR 90 MG TAB PO SCH (20:56)
[2023-03-26] MEDS: HEPARIN SODIUM,PORCINE 5,000 UNIT/ML 1 ML VIAL SQ SCH (20:57)
[2023-03-26] MEDS ORDERED: ATORVASTATIN 80 MG TAB PO SCH (21:00)
[2023-03-26 21:50] LABS: Glucose,Whole Blood 126 mg/dL (70-110)
[2023-03-27 01:56] LABS: Glucose,Whole Blood 119 mg/dL (70-110)
[2023-03-27 06:04] LABS: Glucose,Whole Blood 158 mg/dL (70-110)
--- NOTE | 2023-03-27 06:48 | P.CRDCN ---
History of Present Illness Consult date: 03/27/23 Chief complaint: A. FIB History of present illness: The patient is a pleasant 87-year-old gentleman who lives with his with a past medical history significant for diabetes and hypertension and dyslipidemia. No prior cardiac history according to his daughter. The patient was brought to the emergency room initially because of a change in mental status and urinary retention with a 40 catheter was placed and the patient was discharged. He was brought again because of change in mental status. He underwent a computed tomography scan of the brain which showed possible subacute stroke. Currently neurology is on the case. He was diagnosed with UTI and urinary retention and Kingsley catheter was placed and the patient was admitted. He will be seen by the urology service later on today. We consulted to see the patient because of atrial fibrillation which is new according to him and his daughter. No history of atrial fibrillation and no coronary artery disease or congestive heart failure or cardiac arrhythmia. Currently the patient is on metoprolol. The heart rate appeared to be under good control. I would hold on any oral an ticoagulation or IV anticoagulation. We get more further workup regarding the stroke at this point. Meanwhile we are going to obtain echocardiogram. Beside the change in mental status no indication of any chest pain or chest discomfort or shortness of breath. The creatinine is elevated at this point. There is no baseline creatinine from before. Examination is remarkable for irregular rhythm with diminished breathing sounds bilaterally and mild bilateral lower extremities edema Assessment Change in mental status Possible subacute stroke UTI/urinary retention Atrial fibrillation which is new to the patient Multiple comorbid conditions including hypertension and dyslipidemia and diabetes Plan Continue the current dose of beta kira Obtain serial cardiac enzymes to rule out acute coronary event Obtain an echocardiogram was Doppler Hold any starting of anticoagulation or antiplatelet Follow-up with the patient Past Medical History Past Medical History: Atrial Fibrillation, Heart Failure, Diabetes Mellitus, Hypertension, Memory Impairment Additional Past Medical History / Comment(s): patient poor historian-unable to recall all past medical history History of Any Multi-Drug Resistant Organisms: None Reported Past Surgical History: Hernia Repair Additional Past Surgical History / Comment(s): patient poor historian-unable to recall all past surgeries Past Anesthesia/Blood Transfusion Reactions: No Reported Reaction, Unable to Obtain Past Psychological History: No Psychological Hx Reported Smoking Status: Never smoker Past Alcohol Use History: None Reported Past Drug Use History: None Reported Medications and Allergies Home Medications Medication Instructions Recorded Confirmed Type Tamsulosin [Flomax] 0.4 mg PO DAILY #14 cap 03/25/23 03/26/23 Rx INSULIN LISPRO (HumaLOG) [humaLOG] 10 units SQ AC-BID 03/26/23 03/26/23 History Insulin Glargine [Lantus Vial] 20 units SQ DAILY 03/26/23 03/26/23 History Losartan [Cozaar] 50 mg PO DAILY 03/26/23 03/26/23 History Metoprolol Tartrate [Lopressor] 100 mg PO DAILY 03/26/23 03/26/23 History Potassium Chloride ER [K-Dur 20] 20 meq PO TID 03/26/23 03/26/23 History Simvastatin 10 mg PO HS 03/26/23 03/26/23 History allopurinoL [Zyloprim] 300 mg PO DAILY 03/26/23 03/26/23 History cloNIDine HCL 0.1 mg PO BID 03/26/23 03/26/23 History hydroCHLOROthiazide [Hydrodiuril] 50 mg PO BID 03/26/23 03/26/23 History minoxidiL 10 mg PO DAILY 03/26/23 03/26/23 History Allergies Allergy/AdvReac Type Severity Reaction Status Date / Time No Known Allergies Allergy Verified 03/26/23 09:57 Physical Exam Vitals: Vital Signs Temp Pulse Pulse Resp BP BP Pulse Ox 03/27/23 05:31 124 H 03/27/23 04:00 97.8 F 148 H 20 170/85 98 03/27/23 02:00 100 18 03/27/23 00:00 100 03/26/23 21:55 98.6 F 90 18 166/86 96 03/26/23 20:08 98 18 145/72 03/26/23 19:00 95 19 123/64 96 03/26/23 16:12 91 18 133/93 96 03/26/23 14:00 84 18 141/76 97 03/26/23 10:00 75 20 141/75 98 03/26/23 08:34 86 16 142/79 98 03/26/23 07:34 87 20 117/58 98 03/26/23 07:28 97 F L 92 18 112/78 98 Intake and Output 03/26/23 03/26/23 03/27/23 14:59 22:59 06:59 Output Total 600 Balance -600 Output: Urine 600 Other: Voiding Method Indwelling Catheter Weight 99.79 kg 99.79 kg Results 03/26/23 07:48 03/26/23 07:48 Cardiac Enzymes 03/26/23 Range/Units 07:48 AST 45 (17-59) U/L Coagulation 03/26/23 Range/Units 07:48 PT 13.8 H (10.0-12.5) sec APTT 28.6 (22.0-30.0) sec CBC 03/26/23 Range/Units 07:48 WBC 17.5 H (3.8-10.6) k/uL RBC 5.31 (4.30-5.90) m/uL Hgb 15.3 (13.0-17.5) gm/dL Hct 47.2 (39.0-53.0) % Plt Count 173 (150-450) k/uL Comprehensive Metabolic Panel 03/26/23 Range/Units 07:48 Sodium 141 (137-145) mmol/L Potassium 4.0 (3.5-5.1) mmol/L Chloride 102 (98-107) mmol/L Carbon Dioxide 27 (22-30) mmol/L BUN 49 H (9-20) mg/dL Creatinine 3.40 H (0.66-1.25) mg/dL Glucose 75 (74-99) mg/dL Calcium 9.2 (8.4-10.2) mg/dL AST 45 (17-59) U/L ALT 23 (4-49) U/L Alkaline Phosphatase 80 (38-126) U/L Total Protein 6.5 (6.3-8.2) g/dL Albumin 3.5 (3.5-5.0) g/dL Current Medications Generic Name Dose Route Start Last Admin Trade Name Freq PRN Reason Stop Dose Admin Aspirin 81 mg 03/28/23 09:00 Aspirin 81 Mg PO DAILY SMITH Atorvastatin Calcium 80 mg 03/26/23 21:00 03/26/23 20:56 Atorvastatin 80 Mg Tab PO 80 mg HS SMITH Administration Clonidine 0.1 mg 03/27/23 09:00 03/27/23 05:06 Clonidine Hcl 0.1 Mg Tab PO 0.1 mg BID SMITH Administration Heparin Sodium (Porcine) 5,000 unit 03/26/23 21:00 03/26/23 20:57 Heparin Sodium,Porcine 5,000 Unit/Ml 1 Ml Vial SQ 5,000 unit Q12HR SMITH Administration Ceftriaxone Sodium 2 gm/ 50 mls @ 100 mls/hr 03/26/23 09:00 03/26/23 09:04 Sodium Chloride IVPB 100 mls/hr Q24HR SMITH Administration Protocol Losartan Potassium 50 mg 03/27/23 09:00 03/27/23 05:06 Losartan 50 Mg Tab PO 50 mg DAILY SMITH Administration Metoprolol Tartrate 100 mg 03/27/23 09:00 03/27/23 05:06 Metoprolol Tartrate 50 Mg Tab PO 100 mg DAILY SMITH Administration Naloxone HCl 0.2 mg 03/26/23 13:14 Naloxone 0.4 Mg/Ml 1 Ml Vial IV Q2M PRN Opioid Reversal Tamsulosin HCl 0.4 mg 03/27/23 09:00 Tamsulosin 0.4 Mg Cap.Er.24h PO DAILY [facility] Ticagrelor 90 mg 03/26/23 21:00 03/26/23 20:56 Ticagrelor 90 Mg Tab PO 90 mg BID SMITH Administration Intake and Output 03/26/23 03/26/23 03/27/23 14:59 22:59 06:59 Output Total 600 Balance -600 Output: Urine 600 Other: Voiding Method Indwelling Catheter Weight 99.79 kg 99.79 kg Patient Weight 03/27/23 06:59 Weight 99.79 kg 03/26/23 07:48 03/26/23 07:48
[2023-03-27 08:44] LABS: Anisocytosis Slight; Basophils % (A) 0 %; Eosinophils # (A) 0.1 k/uL (0-0.7); Eosinophils % (A) 1 %; HCT 42.3 % (39.0-53.0); HGB 13.8 gm/dL (13.0-17.5); Lymphocytes # (A) 0.5 k/uL (1.0-4.8); Lymphocytes % (A) 3 %; MCHC 32.7 g/dL (31.0-37.0); MCV 88.5 fL (80.0-100.0); Mean Platelet Volume 8.4; Monocytes # (A) 1.3 k/uL (0-1.0); Monocytes % (A) 8 %; Neutrophils # (A) 14.4 k/uL (1.3-7.7); Neutrophils % (A) 87 %; Platelet Count 118 k/uL (150-450); RBC 4.77 m/uL (4.30-5.90); RDW 16.3 % (11.5-15.5); WBC 16.6 k/uL (3.8-10.6)
[2023-03-27 08:50] LABS: African American GFR (CKD) 21 (>60 ml/min/1.73 sqM); Anion Gap 14 mmol/L; Blood Urea Nitrogen 46 mg/dL (9-20); Calcium 8.5 mg/dL (8.4-10.2); Carbon Dioxide 23 mmol/L (22-30); Chloride 103 mmol/L (98-107); Glucose 140 mg/dL (74-99); Magnesium 1.5 mg/dL (1.6-2.3); Non-African American GFR(CKD) 18 (>60 ml/min/1.73 sqM); Potassium 3.5 mmol/L (3.5-5.1); Sodium 140 mmol/L (137-145)
[2023-03-27] MEDS ORDERED: TAMSULOSIN 0.4 MG CAP.ER.24H PO SCH (09:00)
[2023-03-27] MEDS ORDERED: cloNIDine HCL 0.1 MG TAB PO SCH (09:00)
[2023-03-27] MEDS ORDERED: METOPROLOL TARTRATE 50 MG TAB PO SCH (09:00)
[2023-03-27] MEDS ORDERED: LOSARTAN 50 MG TAB PO SCH (09:00)
[2023-03-27] MEDS: TICAGRELOR 90 MG TAB PO SCH (09:06)
[2023-03-27] MEDS: HEPARIN SODIUM,PORCINE 5,000 UNIT/ML 1 ML VIAL SQ SCH (09:06)
[2023-03-27 09:53] VITALS: RESP 18
[2023-03-27] MEDS ORDERED: POTASSIUM CHLORIDE ER 20 MEQ TAB.ER PO STA (10:45)
[2023-03-27 11:18] LABS: Glucose,Whole Blood 149 mg/dL (70-110)
[2023-03-27] MEDS: MAGNESIUM SULFATE-D5W PMX 1 GM in DEXTROSE/WATER 1 100ML.BAG IVPB SCH (11:28)
[2023-03-27 11:46] VITALS: BP 139/83; PULSE 91; TEMP 97.6
[2023-03-27] MEDS ORDERED: hydrALAZINE HCL 20 MG/ML 1 ML VIAL IVP PRN (11:52)
--- NOTE | 2023-03-27 11:53 | P.NPCON ---
History of Present Illness - Reason for Consult acute renal failure - History of Present Illness Reason for consultation: Acute kidney injury History of present illness: Patient is a 87-year-old male seen in renal consultation for acute kidney injury. Patient denies prior history of kidney disease. Creatinine this admission was 3.4 and is 3.02 today. Patient was having decreased urine output and had a Kingsley catheter placed earlier this week. Patient has been progressively getting weaker and also fell off the bed. Family brought him back to the hospital for further evaluation and was also concerned about altered mental status. Patient's currently sitting up in chair. He was on losartan and hydrochlorothiazide outpatient. Patient does have history of diabetes. Denies family history of kidney disease. No history of coronary artery disease. Oral intake has been fair. Patient noted to be in A. fib with RVR this admission and is being followed by cardiology. Heart rate this morning was in the 120s to 140s but is now in the 90s. Patient denies chest pain or shortness of breath. He is on Lopressor. He also received losartan this morning. Blood pressure controlled. Nonoliguric. No use of NSAIDs. Family present at bedside. Vital signs are stable. General: No acute distress. HEENT: On nasal cannula. LUNGS: No audible rhonchi or wheezes. HEART: Rate and Rhythm are regular. ABDOMEN: Nontender. EXTREMITITES: 1+ edema. Past Medical History Past Medical History: Atrial Fibrillation, Heart Failure, Diabetes Mellitus, Hypertension, Memory Impairment Additional Past Medical History / Comment(s): patient poor historian-unable to recall all past medical history History of Any Multi-Drug Resistant Organisms: None Reported Past Surgical History: Hernia Repair Additional Past Surgical History / Comment(s): patient poor historian-unable to recall all past surgeries Past Anesthesia/Blood Transfusion Reactions: No Reported Reaction, Unable to Obtain Past Psychological History: No Psychological Hx Reported Smoking Status: Never smoker Past Alcohol Use History: None Reported Past Drug Use History: None Reported Medications and Allergies Home Medications Medication Instructions Recorded Confirmed Type Tamsulosin [Flomax] 0.4 mg PO DAILY #14 cap 03/25/23 03/26/23 Rx INSULIN LISPRO (HumaLOG) [humaLOG] 10 units SQ AC-BID 03/26/23 03/26/23 History Insulin Glargine [Lantus Vial] 20 units SQ DAILY 03/26/23 03/26/23 History Losartan [Cozaar] 50 mg PO DAILY 03/26/23 03/26/23 History Metoprolol Tartrate [Lopressor] 100 mg PO DAILY 03/26/23 03/26/23 History Potassium Chloride ER [K-Dur 20] 20 meq PO TID 03/26/23 03/26/23 History Simvastatin 10 mg PO HS 03/26/23 03/26/23 History allopurinoL [Zyloprim] 300 mg PO DAILY 03/26/23 03/26/23 History cloNIDine HCL 0.1 mg PO BID 03/26/23 03/26/23 History hydroCHLOROthiazide [Hydrodiuril] 50 mg PO BID 03/26/23 03/26/23 History minoxidiL 10 mg PO DAILY 03/26/23 03/26/23 History Allergies Allergy/AdvReac Type Severity Reaction Status Date / Time No Known Allergies Allergy Verified 03/26/23 09:57 Physical Exam Vitals: Vital Signs Temp Pulse Pulse Resp BP BP Pulse Ox 03/27/23 11:27 97.6 F 91 18 139/83 98 03/27/23 08:00 98 F 94 18 119/64 95 03/27/23 05:31 124 H 03/27/23 04:00 97.8 F 148 H 20 170/85 98 03/27/23 02:00 100 18 03/27/23 00:00 100 03/26/23 21:55 98.6 F 90 18 166/86 96 03/26/23 20:08 98 18 145/72 03/26/23 19:00 95 19 123/64 96 03/26/23 16:12 91 18 133/93 96 03/26/23 14:00 84 18 141/76 97 Intake and Output 03/26/23 03/27/23 03/27/23 22:59 06:59 14:59 Intake Total 0 Output Total 600 Balance -600 0 Intake: Oral 0 Output: Urine 600 Other: Voiding Method Indwelling Catheter Indwelling Catheter Weight 99.79 kg Results - Lab Results Most recent lab results Calcium 8.5 mg/dL (8.4-10.2) 03/27/23 06:56 Magnesium 1.5 mg/dL (1.6-2.3) L 03/27/23 06:56 03/27/23 06:56 03/27/23 06:56 Assessment and Plan Plan: Assessment: 1. Acute kidney injury secondary to hemodynamic ATN further worsened with the use of ARB and diuretic. Also received IV contrast on 03/26/[address] angiogram. Unknown baseline renal function. Creatinine was 3.4 on admission and is 3.02 today. UA suggestive of UTI. Kidney ultrasound showed dilation of the right collecting system versus very pelvic renal cysts. 2. Ureteral obstruction versus cyst. Has Kingsley catheter. Urology following. 3. Altered mental status. Neurology following. Possible subacute CVA. 4. A. fib with RVR on Lopressor. 5. Benign hypertension. Controlled. 6. Hypomagnesemia from poor intake. 7. Hypokalemia from poor intake. 8. Urinary retention. Has Kingsley catheter. On Flomax. 9. Lower extremity edema. 10. UTI on antibiotics. Plan: Hep-Lock IV fluids. Encourage oral intake. Hold losartan. Replace potassium and magnesium. Avoid nephrotoxins. Continue to monitor renal function and urine output. Follow-up echocardiogram. Thank you for the consultation. I will continue to follow the patient with you during his hospital stay.
--- NOTE | 2023-03-27 12:35 | CA ---
Transthoracic Echo Report Name: Nic Juárez Age: 87 Gender: M : 1935 Exam Date: 03/27/2023 10:08 Exam Location: [facility] Ht (in): 71 Wt (lb): 220 Ordering Physician: Christopher Solomon MD ([id number]) Attending/Referring Phys: Ballistic Expert Ana Lilia Doe RDCS Procedure CPT: Indications: bilateral lower extermity edema Cardiac Hx: Technical Quality: Fair Contrast 1: Total Dose (mL): Contrast 2: Total Dose (mL): MEASUREMENTS (Male / Female) Normal Values 2D ECHO LV Diastolic Diameter PLAX 4.7 cm 4.2 - 5.9 / 3.9 - 5.3 cm LV Systolic Diameter PLAX 4.1 cm IVS Diastolic Thickness 1.6 cm 0.6 - 1.0 / 0.6 - 0.9 cm LVPW Diastolic Thickness 1.5 cm 0.6 - 1.0 / 0.6 - 0.9 cm LV Relative Wall Thickness 0.6 RV Internal Dim ED PLAX 3.3 cm LVOT Diameter 2.4 cm LA Systolic Diameter LX 5.2 cm 3.0 - 4.0 / 2.7 - 3.8 cm LV Diastolic Volume MOD 4C 81.1 cm??? LV Systolic Volume MOD 4C 54.9 cm??? LV Ejection Fraction MOD 4C 32.3 % LV Diastolic Length 4C 7.7 cm LV Systolic Length 4C 7.0 cm LV Diastolic Volume MOD 2C 140.8 cm??? LV Systolic Volume MOD 2C 75.0 cm??? LV Ejection Fraction MOD 2C 46.7 % LV Diastolic Length 2C 7.9 cm LV Systolic Length 2C 6.8 cm LA Volume 123.9 cm??? 18 - 58 / 22 - 52 cm??? LA Volume Index 54.8 cm???/m??? 16 - 28 cm???/m??? M-MODE Aortic Root Diameter MM 3.2 cm MV E Point Septal Separation 0.6 cm AV Cusp Separation MM 1.9 cm DOPPLER AV Peak Velocity 190.4 cm/s AV Peak Gradient 14.5 mmHg AV Mean Velocity 130.5 cm/s AV Mean Gradient 7.7 mmHg AV Velocity Time Integral 33.0 cm AI Peak Velocity 415.6 cm/s AI Peak Gradient 69.1 mmHg AI Pressure Half Time 641.2 ms MV Area PHT 4.2 cm??? MV Deceleration Time 174.8 ms TR Peak Velocity 314.5 cm/s TR Peak Gradient 39.6 mmHg Right Ventricular Systolic Press 43.4 mmHg FINDINGS Left Ventricle Left ventricular ejection fraction is estimated at 40-45 %. Left ventricular cavity size normal. Moderately increased septal wall thickness. Right Ventricle Mild right ventricular dilatation. Mild pulmonary hypertension. Right Atrium Normal right atrial size. Left Atrium Moderately increased left atrial diameter. Severely increased left atrial volume. Moderately increased left atrial area. Mitral Valve Mitral valve thickened. Mild mitral annular calcification. Trace to mild mitral regurgitation. Aortic Valve Trileaflet aortic valve. Aortic valve sclerosis. Mild aortic stenosis with a peak gradient of 14 mmHg and a mean gradient of 8 mmHg. Mild aortic regurgitation. Tricuspid Valve Structurally normal tricuspid valve. Mild tricuspid regurgitation. Pulmonic Valve Pulmonic valve not well visualized. No pulmonic regurgitation. Pericardium No pericardial effusion. Small pleural effusuin Aorta Normal size aortic root and proximal ascending aorta. CONCLUSIONS Mild to moderate LV systolic dysfunction with an ejection fraction of 40-45% Mild mitral regurgitation Moderately enlarged left atrium Mild aortic stenosis Previewed by: Dr. Sabas Gan MD (Electronically Signed) Final Date: 27 March 2023 12:35
--- NOTE | 2023-03-27 12:51 | P.PN ---
Subjective Progress Note Date: 03/27/23 I am following-up with the patient and he feels slightly better. He denies of any new neurological issues. Objective - Vital Signs Vital signs: Vital Signs Temp 97.6 F 03/27/23 11:27 Pulse 91 03/27/23 11:27 Resp 18 03/27/23 11:27 BP 139/83 03/27/23 11:27 Pulse Ox 98 03/27/23 11:27 FiO2 Intake & Output 03/26/23 03/27/23 03/27/23 18:59 06:59 18:59 Intake Total 0 Output Total 600 Balance -600 0 Weight 99.79 kg 99.79 kg Intake: Oral 0 Output: Urine 600 Other: Voiding Method Indwelling Catheter Indwelling Catheter - Exam GENERAL: The patient is sitting in a recliner chair and is not in acute distress. NEUROLOGICAL: He is oriented to self, time and he stated he was in the hospital but stated it was [facility]. No aphasia from the limited language. Pupils are round equal reactive to light. The visual rodriguez is full to consultation. No facial weakness. No dysarthria. Motor: Lifting all extremities above gravity equally. Cerebellar: He is able to perform the finger to nose but has subtle end action finger to nose (left > right). Some other workup during his hospital visit consisted of: Temp is 97 wbc is 17.5K. Troponin is 2.48 vitamin B12: 686 Folate: 16 TSH: 2.470 Patient sugar is in the 50s 50-59. His creatinine is 3.40 and I don't see prior creatinine to compare. Otherwise sodium, calcium, AST ALT are within normal limits. Ammonia is less than 9. Possible left acid venous 2.5. Urine analysis seems possible suggestive underlying acute UTI. Urine drug screen is not detected in the serum alcohol was less than 10. SARS-CoV-2, Influenza A/B, RSV PCR are not detected. CT head is reported as hypodensity and sulcal effacement inferior left cerebellum. Correlate for recent subacute favored left PICA territory infarct. The degree of hypodensity fevers greater than 6 hours in duration. No midline shift, herniation or acute intracranial hemorrhage seen. Moderate atrophy and old infarct right frontal parietal cortex. I personally reviewed the CT and I agree that there seems to be subacute hypodensity over the left cerebellar and is seems the patient has old right frontal parietal. CT angiography of the neck is reported as widely patent vertebral and carotid the arteries of the neck. CT angiography of the head is reported as 4 mm span of severely focal stenosis M 1 segment left MCA prior to its bifurcation. Only one of the left M2 division are visualized and there is overall possibly a vessel along the left M2 and more distal MCA branches. Correlate for any focal neurological deficit localized to the left MCA territory. 2D echo: Reported as mild to moderate left ventricle systolic dysfunction with ejection fraction 45%. Mild mitral regurgitation. Moderately enlarged left atrium. Mild aortic stenosis. - Labs CBC & Chem 7: 03/27/23 06:56 03/27/23 06:56 Labs: Abnormal Lab Results - Last 24 Hours (Table) 03/26/23 03/27/23 03/27/23 Range/Units 21:48 01:54 06:02 WBC (3.8-10.6) k/uL RDW (11.5-15.5) % Plt Count (150-450) k/uL Neutrophils # (1.3-7.7) k/uL Lymphocytes # (1.0-4.8) k/uL Monocytes # (0-1.0) k/uL BUN (9-20) mg/dL Creatinine (0.66-1.25) mg/dL Glucose (74-99) mg/dL POC Glucose (mg/dL) 126 H 119 H 158 H (70-110) mg/dL Magnesium (1.6-2.3) mg/dL Troponin I (0.000-0.034) ng/mL 03/27/23 03/27/23 03/27/23 Range/Units 06:56 06:56 06:56 WBC 16.6 H (3.8-10.6) k/uL RDW 16.3 H (11.5-15.5) % Plt Count 118 L (150-450) k/uL Neutrophils # 14.4 H (1.3-7.7) k/uL Lymphocytes # 0.5 L (1.0-4.8) k/uL Monocytes # 1.3 H (0-1.0) k/uL BUN 46 H (9-20) mg/dL Creatinine 3.02 H (0.66-1.25) mg/dL Glucose 140 H (74-99) mg/dL POC Glucose (mg/dL) (70-110) mg/dL Magnesium 1.5 L (1.6-2.3) mg/dL Troponin I 2.480 H* (0.000-0.034) ng/mL 03/27/23 Range/Units 11:14 WBC (3.8-10.6) k/uL RDW (11.5-15.5) % Plt Count (150-450) k/uL Neutrophils # (1.3-7.7) k/uL Lymphocytes # (1.0-4.8) k/uL Monocytes # (0-1.0) k/uL BUN (9-20) mg/dL Creatinine (0.66-1.25) mg/dL Glucose (74-99) mg/dL POC Glucose (mg/dL) 149 H (70-110) mg/dL Magnesium (1.6-2.3) mg/dL Troponin I (0.000-0.034) ng/mL Assessment and Plan Assessment: This is an 87-year-old gentleman who presented to the emergency department because of altered mental status and he notified me that he had dizziness.. Seems the patient presented yesterday because of urinary retention and had a Kingsley catheter placed and was discharged home. In the hospital sugar was as low as [address] head shows evidence of for possible subacute left cerebellar stro ke. CT angiography shows stenosis over the M1 and M2 region. 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 Has acute A-fib on EKG. Stenosis over the M1/M2 region on the CT angiography possible isolated: Rule out MCA stroke Elevated troponin as high as 2.46 with low ejection fraction. Altered mental status is seems multifactorial due to hypoglycemic encephalopathy, kidney insufficiency and having the urinary retention, and probable subacute stroke with acute UTI--improved New onset a-fib on EKG. Hypoglycemia Urinary retention Probable acute UTI Diabetes mellitus Hypertension Plan: Per ED physician he spoke with the stroke intervention is Dr. Rogers and no intervention for stenosis over MCA territory and recommended medical management. He recommended aspirin and Brilinta. So patient is started on ASA 81mg daily and Brilinta 90mg 1 tab tid. Posture the patient on Lipitor 80 mg daily at bedtime for second stroke prophylaxis Pending MRI the brain. For elevated troponin, new onset atrial fibrillation and low ejection fraction: Cardiology is on board. Continue neuro checks Cardiac monitoring PT OT and MEAT CLERK are consulted Please avoid any hypoglycemic event or defer the management to primary team Rn Angiography consulted for the AK I with a UTI. For DVT prophylaxis On subcu heparin 5000 Hz every 12 hours. The plan is discussed with patient, his family members (daughter and son-in-law) and his nurse. Dr. Arroyo will resume neurology service tomorrow A.M. Time with Patient: Less than 30
--- NOTE | 2023-03-27 14:11 | P.GSCN ---
History of Present Illness Consult date: 03/27/23 Reason for Consult: Urinary retention Requesting physician: Ryne Mcginnis History of present illness: The patient is an 87-year-old white male seen in the ER 03/25/2023 for urinary retention. Urinalysis showed no evidence of infection at that time. A Kingsley catheter was placed. Unfortunately, the amount of urine initially drained from his bladder was not recorded. He was discharged home, but returned the and was admitted for evaluation of mental status changes. He has an unremarkable urologic history. Review of Systems - Genitourinary Reports as per HPI - Neurological Reports confusion Past Medical History Past Medical History: Atrial Fibrillation, Heart Failure, Diabetes Mellitus, Hypertension, Memory Impairment Additional Past Medical History / Comment(s): patient poor historian-unable to recall all past medical history History of Any Multi-Drug Resistant Organisms: None Reported Past Surgical History: Hernia Repair Additional Past Surgical History / Comment(s): patient poor historian-unable to recall all past surgeries Past Anesthesia/Blood Transfusion Reactions: No Reported Reaction, Unable to Obtain Past Psychological History: No Psychological Hx Reported Smoking Status: Never smoker Past Alcohol Use History: None Reported Past Drug Use History: None Reported Medications and Allergies Home Medications Medication Instructions Recorded Confirmed Type Tamsulosin [Flomax] 0.4 mg PO DAILY #14 cap 03/25/23 03/26/23 Rx INSULIN LISPRO (HumaLOG) [humaLOG] 10 units SQ AC-BID 03/26/23 03/26/23 History Insulin Glargine [Lantus Vial] 20 units SQ DAILY 03/26/23 03/26/23 History Losartan [Cozaar] 50 mg PO DAILY 03/26/23 03/26/23 History Metoprolol Tartrate [Lopressor] 100 mg PO DAILY 03/26/23 03/26/23 History Potassium Chloride ER [K-Dur 20] 20 meq PO TID 03/26/23 03/26/23 History Simvastatin 10 mg PO HS 03/26/23 03/26/23 History allopurinoL [Zyloprim] 300 mg PO DAILY 03/26/23 03/26/23 History cloNIDine HCL 0.1 mg PO BID 03/26/23 03/26/23 History hydroCHLOROthiazide [Hydrodiuril] 50 mg PO BID 03/26/23 03/26/23 History minoxidiL 10 mg PO DAILY 03/26/23 03/26/23 History Tamsulosin [Flomax] 0.4 mg PO DAILY #30 cap 03/27/23 Rx Allergies Allergy/AdvReac Type Severity Reaction Status Date / Time No Known Allergies Allergy Verified 03/26/23 09:57 Surgical - Exam Vital Signs Temp Pulse Resp BP Pulse Ox 97 F L 92 18 112/78 98 03/26/23 07:28 03/26/23 07:28 03/26/23 07:28 03/26/23 07:28 03/26/23 07:28 - General well developed, well nourished, no distress - Respiratory normal respiratory effort - Abdomen Abdomen: soft, non tender, no guarding, no rigid, no rebound - Genitourinary normal penis with no external lesions, testicles non-tender - Rectum Rectum: normal sphincter tone, no masses, other (The prostate is mildly enlarged. Nodularity overlies the right lateral lobe at the base. This nodularity is irregular and is more likely to arise from the rectal wall than the prostate.) - Psychiatric oriented to time, oriented to person, oriented to place, speech is normal, memory intact Results - Labs 03/27/23 06:56 03/27/23 06:56 Abnormal Lab Results - Last 24 Hours (Table) 03/26/23 03/26/23 03/26/23 Range/Units 07:48 07:48 07:48 WBC 17.5 H (3.8-10.6) k/uL RDW 15.8 H (11.5-15.5) % Neutrophils # 15.3 H (1.3-7.7) k/uL PT 13.8 H (10.0-12.5) sec INR 1.3 H (<1.2) BUN (9-20) mg/dL Creatinine (0.66-1.25) mg/dL POC Glucose (mg/dL) (70-110) mg/dL Plasma Lactic Acid Ruslan (0.7-2.0) mmol/L Urine Protein 3+ H (Negative) Urine Glucose (UA) 1+ H (Negative) Urine Blood Large H (Negative) Ur Leukocyte Esterase Small H (Negative) Urine RBC >182 H (0-5) /hpf Urine WBC 142 H (0-5) /hpf Urine Bacteria Rare H (None) /hpf 03/26/23 03/26/23 03/26/23 Range/Units 07:48 07:48 21:48 WBC (3.8-10.6) k/uL RDW (11.5-15.5) % Neutrophils # (1.3-7.7) k/uL PT (10.0-12.5) sec INR (<1.2) BUN 49 H (9-20) mg/dL Creatinine 3.40 H (0.66-1.25) mg/dL POC Glucose (mg/dL) 126 H (70-110) mg/dL Plasma Lactic Acid Ruslan 2.5 H* (0.7-2.0) mmol/L Urine Protein (Negative) Urine Glucose (UA) (Negative) Urine Blood (Negative) Ur Leukocyte Esterase (Negative) Urine RBC (0-5) /hpf Urine WBC (0-5) /hpf Urine Bacteria (None) /hpf 03/27/23 03/27/23 Range/Units 01:54 06:02 WBC (3.8-10.6) k/uL RDW (11.5-15.5) % Neutrophils # (1.3-7.7) k/uL PT (10.0-12.5) sec INR (<1.2) BUN (9-20) mg/dL Creatinine (0.66-1.25) mg/dL POC Glucose (mg/dL) 119 H 158 H (70-110) mg/dL Plasma Lactic Acid Ruslan (0.7-2.0) mmol/L Urine Protein (Negative) Urine Glucose (UA) (Negative) Urine Blood (Negative) Ur Leukocyte Esterase (Negative) Urine RBC (0-5) /hpf Urine WBC (0-5) /hpf Urine Bacteria (None) /hpf Diabetes panel 03/26/23 Range/Units 07:48 Sodium 141 (137-145) mmol/L Potassium 4.0 (3.5-5.1) mmol/L Chloride 102 (98-107) mmol/L Carbon Dioxide 27 (22-30) mmol/L BUN 49 H (9-20) mg/dL Creatinine 3.40 H (0.66-1.25) mg/dL Glucose 75 (74-99) mg/dL Calcium 9.2 (8.4-10.2) mg/dL AST 45 (17-59) U/L ALT 23 (4-49) U/L Alkaline Phosphatase 80 (38-126) U/L Total Protein 6.5 (6.3-8.2) g/dL Albumin 3.5 (3.5-5.0) g/dL Thyroid panel 03/26/23 Range/Units 07:48 TSH 2.470 (0.465-4.680) mIU/L Calcium panel 03/26/23 Range/Units 07:48 Calcium 9.2 (8.4-10.2) mg/dL Albumin 3.5 (3.5-5.0) g/dL Pituitary panel 03/26/23 03/26/23 Range/Units 07:48 07:48 Sodium 141 (137-145) mmol/L Potassium 4.0 (3.5-5.1) mmol/L Chloride 102 (98-107) mmol/L Carbon Dioxide 27 (22-30) mmol/L BUN 49 H (9-20) mg/dL Creatinine 3.40 H (0.66-1.25) mg/dL Glucose 75 (74-99) mg/dL Calcium 9.2 (8.4-10.2) mg/dL TSH 2.470 (0.465-4.680) mIU/L Adrenal panel 03/26/23 Range/Units 07:48 Sodium 141 (137-145) mmol/L Potassium 4.0 (3.5-5.1) mmol/L Chloride 102 (98-107) mmol/L Carbon Dioxide 27 (22-30) mmol/L BUN 49 H (9-20) mg/dL Creatinine 3.40 H (0.66-1.25) mg/dL Glucose 75 (74-99) mg/dL Calcium 9.2 (8.4-10.2) mg/dL Total Bilirubin 1.2 (0.2-1.3) mg/dL AST 45 (17-59) U/L ALT 23 (4-49) U/L Alkaline Phosphatase 80 (38-126) U/L Total Protein 6.5 (6.3-8.2) g/dL Albumin 3.5 (3.5-5.0) g/dL - Imaging US - kidney/bladder: report reviewed Assessment and Plan (1) Urinary retention Current Visit: No Status: Acute Code(s): R33.9 - RETENTION OF URINE, UNSPECIFIED SNOMED Code(s): 807593877 Plan: The Kingsley catheter is draining blood-tinged urine. As stated, an abnormality was noted on digital rectal examination. There are no PSA levels on record at [facility]. Ultrasound shows possible right hydronephrosis as well as right renal cysts. The left kidney is poorly visualized. From my standpoint, Mr. Juárez is urologically stable for discharge with a Kingsley catheter. I have sent a prescription for tamsulosin, and he has an appointment to see me on 04/02/2023. I have ordered a PSA level, though it may be artificially elevated due to the presence of an indwelling catheter. Lastly, I have consulted general surgery to evaluate for a rectal mass. Time with Patient: Greater than 30
[2023-03-27] MEDS ORDERED: IOPAMIDOL CONTRAST (ORAL USE) VIAL PO PRN (15:00)
--- NOTE | 2023-03-27 15:09 | P.GSCN ---
History of Present Illness Consult date: 03/27/23 History of present illness: CHIEF COMPLAINT: Altered mental status changes Reason for consult: Possible rectal mass HISTORY OF PRESENT ILLNESS: This is a 87-year-old male who presented with altered mental status changes and urinary retention. Patient found to have filiberto dence of a subacute ischemic cerebellar stroke, UTI, new onset atrial fibrillation, urinary retention and acute kidney injury. Patient is followed by multiple consultants. He is currently on Brilenta and Aspirin for his stroke. Patient evaluated by urology regarding the urinary retention. They noted an abnormality during the rectal exam and concerns for possible rectal mass therefore surgical service was consulted. Patient denies any abdominal pain. He denies any blood in his stools. Denies any rectal discomfort. Denies any cancer history. Patient has never had colonoscopy. He does have a prior history of smoking. PAST MEDICAL HISTORY: Diabetes Mellitus, Hypertension PAST SURGICAL HISTORY: Hernia repair MEDICATIONS: See below ALLERGIES: See below SOCIAL HISTORY: No illicit drug use. REVIEW OF SYSTEMS: CONSTITUTIONAL: Denies fever or chills. HEENT: Denies blurred vision, vision changes, or eye pain. Denies hemoptysis CARDIOVASCULAR: Denies chest pain or pressure. RESPIRATORY: No shortness of breath. GASTROINTESTINAL: See HPI for pertinent findings HEMATOLOGIC: Denies bleeding disorders. GENITOURINARY: Denies any blood in urine or increased urinary frequency. SKIN: Denies pruitis. Denies rash. PHYSICAL EXAM: VITAL SIGNS: Reviewed GENERAL: Well-developed in no acute distress. HEENT: No sclera icterus. Extraocular movements grossly intact. Moist buccal mucosa. Head is atraumatic, normocephalic. No nasal drainage. ABDOMEN: Soft. Nondistended. Nontender. Has Kingsley catheter in place with evidence of hematuria. NEUROLOGIC: Alert and oriented. Cranial nerves II through XII grossly intact. LABORATORY DATA: WBC 16.6 Hgb 13.8 platelets 118 Sodium 140 potassium 3.5 creatinine 3.02 Magnesium 1.5 Troponin 2.480 IMAGING: Computed tomography scan of brain hypodensity and sulcal effacement inferior left cerebellum. Moderate atrophy and old infarct right frontal parietal cortex Renal ultrasound dilation of the right collecting system versus peripelvic renal cysts. Correlate for more distal obstruction. ASSESSMENT: 1. Possible rectal mass. Abnormality noted on rectal exam per urology 2. Urinary retention 3. Probable subacute ischemic left cerebellar stroke 4. Atrial fibrillation 5. UTI 6. Acute kidney injury PLAN: -Computed tomography scan abdomen and pelvis ordered with oral contrast for further evaluation of possible rectal mass -Further recommendations forthcoming per surgeon Thank you for this consultation Physician [employer] note has been reviewed by physician. Signing provider agrees with the documented findings, assessment, and plan of care. Past Medical History Past Medical History: Atrial Fibrillation, Heart Failure, Diabetes Mellitus, Hypertension, Memory Impairment Additional Past Medical History / Comment(s): patient poor historian-unable to recall all past medical history History of Any Multi-Drug Resistant Organisms: None Reported Past Surgical History: Hernia Repair Additional Past Surgical History / Comment(s): patient poor historian-unable to recall all past surgeries Past Anesthesia/Blood Transfusion Reactions: No Reported Reaction, Unable to Obtain Past Psychological History: No Psychological Hx Reported Smoking Status: Never smoker Past Alcohol Use History: None Reported Past Drug Use History: None Reported Medications and Allergies Home Medications Medication Instructions Recorded Confirmed Type Tamsulosin [Flomax] 0.4 mg PO DAILY #14 cap 03/25/23 03/26/23 Rx INSULIN LISPRO (HumaLOG) [humaLOG] 10 units SQ AC-BID 03/26/23 03/26/23 History Insulin Glargine [Lantus Vial] 20 units SQ DAILY 03/26/23 03/26/23 History Losartan [Cozaar] 50 mg PO DAILY 03/26/23 03/26/23 History Metoprolol Tartrate [Lopressor] 100 mg PO DAILY 03/26/23 03/26/23 History Potassium Chloride ER [K-Dur 20] 20 meq PO TID 03/26/23 03/26/23 History Simvastatin 10 mg PO HS 03/26/23 03/26/23 History allopurinoL [Zyloprim] 300 mg PO DAILY 03/26/23 03/26/23 History cloNIDine HCL 0.1 mg PO BID 03/26/23 03/26/23 History hydroCHLOROthiazide [Hydrodiuril] 50 mg PO BID 03/26/23 03/26/23 History minoxidiL 10 mg PO DAILY 03/26/23 03/26/23 History Tamsulosin [Flomax] 0.4 mg PO DAILY #30 cap 03/27/23 Rx Allergies Allergy/AdvReac Type Severity Reaction Status Date / Time No Known Allergies Allergy Verified 03/26/23 09:57 Surgical - Exam Vital Signs Temp Pulse Resp BP Pulse Ox 97 F L 92 18 112/78 98 03/26/23 07:28 03/26/23 07:28 03/26/23 07:28 03/26/23 07:28 03/26/23 07:28 Results - Labs 03/27/23 06:56 03/27/23 06:56 Abnormal Lab Results - Last 24 Hours (Table) 03/26/23 03/27/23 03/27/23 Range/Units 21:48 01:54 06:02 WBC (3.8-10.6) k/uL RDW (11.5-15.5) % Plt Count (150-450) k/uL Neutrophils # (1.3-7.7) k/uL Lymphocytes # (1.0-4.8) k/uL Monocytes # (0-1.0) k/uL BUN (9-20) mg/dL Creatinine (0.66-1.25) mg/dL Glucose (74-99) mg/dL POC Glucose (mg/dL) 126 H 119 H 158 H (70-110) mg/dL Magnesium (1.6-2.3) mg/dL Troponin I (0.000-0.034) ng/mL 03/27/23 03/27/23 03/27/23 Range/Units 06:56 06:56 06:56 WBC 16.6 H (3.8-10.6) k/uL RDW 16.3 H (11.5-15.5) % Plt Count 118 L (150-450) k/uL Neutrophils # 14.4 H (1.3-7.7) k/uL Lymphocytes # 0.5 L (1.0-4.8) k/uL Monocytes # 1.3 H (0-1.0) k/uL BUN 46 H (9-20) mg/dL Creatinine 3.02 H (0.66-1.25) mg/dL Glucose 140 H (74-99) mg/dL POC Glucose (mg/dL) (70-110) mg/dL Magnesium 1.5 L (1.6-2.3) mg/dL Troponin I 2.480 H* (0.000-0.034) ng/mL 03/27/23 Range/Units 11:14 WBC (3.8-10.6) k/uL RDW (11.5-15.5) % Plt Count (150-450) k/uL Neutrophils # (1.3-7.7) k/uL Lymphocytes # (1.0-4.8) k/uL Monocytes # (0-1.0) k/uL BUN (9-20) mg/dL Creatinine (0.66-1.25) mg/dL Glucose (74-99) mg/dL POC Glucose (mg/dL) 149 H (70-110) mg/dL Magnesium (1.6-2.3) mg/dL Troponin I (0.000-0.034) ng/mL Diabetes panel 03/27/23 Range/Units 06:56 Sodium 140 (137-145) mmol/L Potassium 3.5 (3.5-5.1) mmol/L Chloride 103 (98-107) mmol/L Carbon Dioxide 23 (22-30) mmol/L BUN 46 H (9-20) mg/dL Creatinine 3.02 H (0.66-1.25) mg/dL Glucose 140 H (74-99) mg/dL Calcium 8.5 (8.4-10.2) mg/dL Thyroid panel 03/26/23 Range/Units 07:48 TSH 2.470 (0.465-4.680) mIU/L Calcium panel 03/27/23 Range/Units 06:56 Calcium 8.5 (8.4-10.2) mg/dL Pituitary panel 03/26/23 03/27/23 Range/Units 07:48 06:56 Sodium 140 (137-145) mmol/L Potassium 3.5 (3.5-5.1) mmol/L Chloride 103 (98-107) mmol/L Carbon Dioxide 23 (22-30) mmol/L BUN 46 H (9-20) mg/dL Creatinine 3.02 H (0.66-1.25) mg/dL Glucose 140 H (74-99) mg/dL Calcium 8.5 (8.4-10.2) mg/dL TSH 2.470 (0.465-4.680) mIU/L Adrenal panel 03/27/23 Range/Units 06:56 Sodium 140 (137-145) mmol/L Potassium 3.5 (3.5-5.1) mmol/L Chloride 103 (98-107) mmol/L Carbon Dioxide 23 (22-30) mmol/L BUN 46 H (9-20) mg/dL Creatinine 3.02 H (0.66-1.25) mg/dL Glucose 140 H (74-99) mg/dL Calcium 8.5 (8.4-10.2) mg/dL
[2023-03-27 17:55] LABS: Chol/HDL Ratio 2.11 Ratio; LDL Cholesterol,Calculated 32.7 mg/dL (0.0-131.0); VLDL Calculation 18.34 mg/dL (5.00-40.00)
[2023-03-27] MEDS ORDERED: CEPHALEXIN 500 MG CAP PO SCH (18:00)
[2023-03-28] MEDS ORDERED: ASPIRIN 81 MG PO SCH (09:00)
--- NOTE | 2023-03-28 15:35 | DS ---
DISCHARGE SUMMARY CHIEF COMPLAINT: Mental status changes, hypoglycemia, urinary retention, urinary tract infection, and acute kidney injury. HISTORY OF PRESENT ILLNESS AND PHYSICAL EXAMINATION: Details of this man's history and physical can be found in the initial workup. LABORATORY STUDIES: While he is in the hospital, he had laboratory studies, details of which can be found in the laboratory section of his chart. COURSE IN THE HOSPITAL: After admission, he was placed on bedrest, started intravenous fluids, and his electrolyte imbalance and dehydration were corrected. The following day, he was much more awake and alert and his orientation had improved. The family was very anxious to take him home and even though he was weak, they stated that they had enough family members to help care for him; and his had just gone home from the hospital yesterday after myocardial infarction and placement of 2 stents. He will be followed up later this week. FINAL DIAGNOSES: 1. Mental status changes. 2. Dehydration. 3. Electrolyte imbalance. 4. Acute kidney injury. 5. Urinary tract infection. 6. Possible early dementia. OPERATIONS: None. CONSULTATIONS: Cardiology. He is improved. MMTEDDY / REJI: [id number] /
--- NOTE | 2023-03-28 18:26 | HP ---
HISTORY AND PHYSICAL CHIEF COMPLAINT: Confusion and mental status changes. HISTORY OF PRESENT ILLNESS: This is another admission for this 87-year-old white male. He has a longstanding history of hypertension and fairly well controlled diabetes mellitus. He also has a history of atrial fibrillation. He apparently became confused and agitated and was brought to the emergency room. There, he was found to be in urinary retention and atrial fibrillation. He had a white count of 16,600. His BUN was elevated at 46 with a creatinine of 3.02. Troponin was also slightly elevated. REVIEW OF SYSTEMS: Unobtainable. Past medical history, family history, and personal and social histories are otherwise unobtainable. He does not smoke or drink. PHYSICAL EXAMINATION: VITAL SIGNS: Normal. HEAD, EARS, EYES, NOSE, MOUTH, AND THROAT: Normal. NECK: Carotids are normal. There is no neck vein distention. CHEST: Clear. CARDIAC: Demonstrated atrial fibrillation. ABDOMEN: Soft and slightly protuberant. EXTREMITIES: Normal. NEUROLOGICAL: He is intact. He was confused. IMPRESSION: 1. Delirium. 2. Urinary retention. 3. New onset atrial fibrillation. 4. Acute kidney injury. 5. Elevated troponin. 6. Type 2 diabetes mellitus. PLAN: 1. Bed rest. 2. IV fluids. 3. Blood and urinary cultures. 4. Monitor white count and renal function. 5. Cardiology consult. MMODL / IJN: [id number] /
--- NOTE | 2023-04-01 08:19 | CDI ---
Documentation Clarification Form Date: 04/01/2023 07:51:40 AM From: Cecilia Briceno RN, CCDS Admit Date: 03/26/2023 01:14:00 PM Patient Name: Nic Juárez Visit Number: [id number] Discharge Date: 03/27/2023 05:12:00 PM ATTENTION: The Clinical Documentation Specialists (CDI) and [facility] Coding Staff appreciate your assistance in clarifying documentation. Please respond to the clarification below the line at the bottom and electronically sign. The CDI & [facility] Coding staff will review the response and follow-up if needed. Please note: Queries are made part of the Legal Health Record. If you have any questions, please contact the author of this message via ITS. Dr. Wellington Chaudhry Altered mental status is seems multifactorial due to hypoglycemic Encephalopathy is documented in the consult and subsequent progress note. Additional clarification regarding the type of encephalopathy is requested. Patient sugar is in the 50s 50-59. per consult notes. History/Risk Factors: Diabetes Mellitus, Hypertension Clinical Indicators: 87-year-old male presented emergency department because of confusion. 03/26 VS 112/78 92 18 97 98% RA 03/26 Labs: WBC 17.5 Neutrophils 15.3, BUN 49, CR 3.40 Lactic acid 2.5 Glucose 50 03/26 UA: Ur Leukocyte Esterase small, urine WBC 142 03/26 Urine Culture: No Growth after [address] head is reported as hypo density and sulcal effacement inferior left cerebellum. Correlate for recent subacute favored left PICA territory infarct. CT angiography of the head is reported as 4 mm span of severely focal stenosis M1 segment left MCA prior to its bifurcation. Treatment: Cardiac/Telemetry monitoring Neuro checks per protocol. Avoid any hypoglycemic event Rocephin 2 GM IVPB Q 24 HRS 03/26-03/27 Keflex 500 MG PO QID 03/27 .9 NS 500 ML IV Bolus 03/26 Brilinta 90MG PO BID 03/26-03/27 PT/OT Management and treat Please clarify the type of encephalopathy, if known: [ ] Hypoglycemia with Metabolic Encephalopathy [ ] Metabolic Encephalopathy secondary to UTI [ ] Other, please specify [ ] Unable to determine (Template Last Revised: July 2020) Hypoglycemic with metabolic encephalopathy MTDD
== END 2023-03-27 17:12 | disposition home health service (06) | DRG 64 ==
LOC: EC 07:26 → 3SCARD 13:14
PROVIDERS: ADMIT Family Medicine; ATTEND Family Medicine
DX: I63.542 Cerebral infarction due to unspecified occlusion or stenosis of left cerebellar artery (principal); G93.41 Metabolic encephalopathy; N17.0 Acute kidney failure with tubular necrosis; N39.0 Urinary tract infection, site not specified; I48.91 Unspecified atrial fibrillation; T50.2X5A Adverse effect of carbonic-anhydrase inhibitors, benzothiadiazides and other diuretics, initial encounter; T46.4X5A Adverse effect of angiotensin-converting-enzyme inhibitors, initial encounter; E86.0 Dehydration; E87.6 Hypokalemia; E11.649 Type 2 diabetes mellitus with hypoglycemia without coma; I11.0 Hypertensive heart disease with heart failure; I50.9 Heart failure, unspecified; I25.10 Atherosclerotic heart disease of native coronary artery without angina pectoris; E78.5 Hyperlipidemia, unspecified; Z20.822 Contact with and (suspected) exposure to COVID-19; R33.8 Other retention of urine; E83.42 Hypomagnesemia; X58.XXXA Exposure to other specified factors, initial encounter; Z87.19 Personal history of other diseases of the digestive system; W06.XXXA Fall from bed, initial encounter; Z79.899 Other long term (current) drug therapy; Z79.4 Long term (current) use of insulin; Z82.49 Family history of ischemic heart disease and other diseases of the circulatory system; Z86.73 Personal history of transient ischemic attack (TIA), and cerebral infarction without residual deficits; Z95.5 Presence of coronary angioplasty implant and graft
CPT/HCPCS: 36415; 70450; 70496; 70498; 71046; 76770; 80048; 80053; 80061; 80306; 80320; 81001; 82140; 82607; 82746; 83605; 83735; 84443; 84484; 85025; 85610; 85730; 87040; 87086; 87636; 93005; 93306; 96361; 96365; 96366; 96372; 96375; 99291

== ENCOUNTER 2023-05-10 09:02 | Emergency (ER) | payer MEDICARE, BC ==
[2023-05-10] MEDS ORDERED: SODIUM CHLORIDE 0.9% 1,000 ML IV STA (09:04)
[2023-05-10 09:07] VITALS: RESP 18; TEMP 98.7
--- NOTE | 2023-05-10 09:19 | ED ---
General Adult HPI - General Chief complaint: Neuro Symptoms/Deficit Stated complaint: L Side Deficit Source: patient, EMS, RN notes reviewed, old records reviewed Mode of arrival: EMS Limitations: no limitations - History of Present Illness Initial comments: 87-year-old male presents with stroke symptoms. Patient woke at approximately 8 AM with symptoms of left-sided paralysis. Patient was transported as priority 1. According to paramedics he had gone to bed yesterday evening without symptoms and this is when he was last known well. He denies any pain complaints. Patient has left-sided neglect and left facial droop with left- sided paralysis. Patient apparently takes 81 mg aspirin but has held this medication for a urological procedure. - Related Data Home Medications Medication Instructions Recorded Confirmed INSULIN LISPRO (HumaLOG) [humaLOG] 10 units SQ AC-BID 03/26/23 05/10/23 Insulin Glargine [Lantus Vial] 20 units SQ DAILY 03/26/23 05/10/23 Losartan [Cozaar] 50 mg PO DAILY 03/26/23 05/10/23 Metoprolol Tartrate [Lopressor] 100 mg PO DAILY 03/26/23 05/10/23 Potassium Chloride ER [K-Dur 20] 20 meq PO TID 03/26/23 05/10/23 allopurinoL [Zyloprim] 300 mg PO DAILY 03/26/23 05/10/23 cloNIDine HCL 0.1 mg PO BID 03/26/23 05/10/23 hydroCHLOROthiazide [Hydrodiuril] 50 mg PO BID 03/26/23 05/10/23 minoxidiL 10 mg PO DAILY 03/26/23 05/10/23 Previous Rx's Medication Instructions Recorded Tamsulosin [Flomax] 0.4 mg PO DAILY #14 cap 03/25/23 Aspirin 81 mg PO DAILY #100 tab 03/27/23 Atorvastatin [Lipitor] 80 mg PO HS #100 tab 03/27/23 Ticagrelor [Brilinta] 90 mg PO BID #60 tab 03/27/23 Allergies Allergy/AdvReac Type Severity Reaction Status Date / Time No Known Allergies Allergy Verified 05/10/23 09:18 Review of Systems ROS Statement: Those systems with pertinent positive or pertinent negative responses have been documented in the HPI. ROS Other: All systems not noted in ROS Statement are negative. Past Medical History Past Medical History: Atrial Fibrillation, Heart Failure, Diabetes Mellitus, Hypertension, Memory Impairment Additional Past Medical History / Comment(s): patient poor historian-unable to recall all past medical history History of Any Multi-Drug Resistant Organisms: None Reported Past Surgical History: Hernia Repair Additional Past Surgical History / Comment(s): patient poor historian-unable to recall all past surgeries Past Anesthesia/Blood Transfusion Reactions: No Reported Reaction, Unable to Obtain Past Psychological History: No Psychological Hx Reported Smoking Status: Never smoker Past Alcohol Use History: None Reported Past Drug Use History: None Reported General Exam Limitations: no limitations General appearance: alert, in no apparent distress Head exam: Present: atraumatic, normocephalic Eye exam: Present: normal appearance, PERRL Respiratory exam: Present: wheezes, rhonchi Cardiovascular Exam: Present: normal rhythm, tachycardia GI/Abdominal exam: Present: soft. Absent: distended, tenderness Extremities exam: Present: normal inspection, normal capillary refill Neurological exam: Present: alert, motor sensory deficit (Left-sided paralysis, left shaina-neglect, NIH of 15) Skin exam: Present: warm, dry, intact Course Vital Signs 05/10/23 05/10/23 05/10/23 09:04 09:06 09:30 Temperature 98.7 F Pulse Rate 101 H 110 H 113 H Respiratory 18 18 18 Rate Blood Pressure 204/137 204/148 179/120 O2 Sat by Pulse 92 L 90 L 90 L Oximetry 05/10/23 05/10/23 05/10/23 09:43 09:45 09:50 Temperature Pulse Rate 111 H 111 H 124 H Respiratory 18 18 18 Rate Blood Pressure 179/120 179/120 169/104 O2 Sat by Pulse 92 L 92 L 92 L Oximetry 05/10/23 05/10/23 05/10/23 10:00 10:15 10:27 Temperature Pulse Rate 111 H 115 H 121 H Respiratory 18 18 18 Rate Blood Pressure 169/104 187/99 187/127 O2 Sat by Pulse 93 L 92 L 93 L Oximetry Medical Decision Making - Medical Decision Making Was pt. sent in by a medical professional or institution (, PA, STAFF NUCLEAR [employer]APONS OFFICER, urgent care, hospital, or alf...) When possible be specific @ -No Did you speak to anyone other than the patient for history (EMS, parent, family, police, friend...)? What history was obtained from this source @ -No Did you review nursing and triage notes (agree or disagree)? Why? @ -I reviewed and agree with nursing and triage notes Were old charts reviewed (outside hosp., previous admission, EMS record, old EKG, old radiological studies, urgent care reports/EKG's, alf records)? Report findings @ -No old charts were reviewed Differential Diagnosis (chest pain, altered mental status, abdominal pain women, abdominal pain men, vaginal bleeding, weakness, fever, dyspnea, syncope, headache, dizziness, GI bleed, back pain, seizure, CVA, palpatations, mental health, musculoskeletal)? @ Differential CVA Ischemic stroke, hemorrhagic stroke, brain tumor, atypical migraine, Wernicke's encephalopathy, seizure, multiple sclerosis, meningitis, encephalitis, hypoglycemia, Guillain-Barrera, electrolytes disturbance, myasthenia gravis.... This is not meant to be an all-inclusive list EKG interpreted by me (3pts min.). @ A fibrillation with RVR with a rate of 117, QRS duration 93, QTC 405 X-rays interpreted by me (1pt min.). @ -None done CT interpreted by me (1pt min.). @ -CT brain showing encephalomalacia without intracranial hemorrhage. CT angiography pending. U/S interpreted by me (1pt. min.). @ -None done What testing was considered but not performed or refused? (CT, X-rays, U/S, labs)? Why? @ -None What meds were considered but not given or refused? Why? @ -None Did you discuss the management of the patient with other professionals (professionals i.e. , PA, STAFF NUCLE[employer] OFFICER, lab, RT, psych nurse, marriage and family social worker, bone char puller, teacher, inspectors and regulatory officers, caseworker)? Give summary @ Patient care is coordinated through the stroke network, discussed case with Dr. Rogers, as well as the stroke team. Patient is a thrombectomy candidate and will be transferred urgently to [place]. Was smoking cessation discussed for >3mins.? @ -No Was critical care preformed (if so, how long)? @ -[yes 35 Were there social determinants of health that impacted care today? How? (Homelessness, low income, unemployed, alcoholism, drug addiction, transportation, low edu. Level, literacy, decrease access to med. care, fci, rehab)? @ -No Was there de-escalation of care discussed even if they declined (Discuss DNR or withdrawal of care, Hospice)? DNR status @ -No What co-morbidities impacted this encounter? (DM, HTN, Smoking, COPD, CAD, Cancer, CVA, ARF, Chemo, Hep., AIDS, mental health diagnosis, sleep apnea, morbid obesity)? @ -Hypertension, atrial fibrillation Was patient admitted / discharged? Hospital course, mention meds given and route, prescriptions, significant lab abnormalities, going to OR and other pertinent info. @ -87-year-old male with CVA. This is awake upstroke. Patient is not a TPA candidate secondary to timing. Patient is within [address] and CT angiography in the emergency department. There is concern for right MCA according to the interventional list and patient is a thrombectomy candidate. He is transferred urgently to [facility]. Undiagnosed new problem with uncertain prognosis? @ -No Drug Therapy requiring intensive monitoring for toxicity (Heparin, Nitro, Insulin, Cardizem)? @ -No Were any procedures done? @ -[No] Diagnosis/symptom? @ -CVA Acute, or Chronic, or Acute on Chronic? @ -[Acute Uncomplicated (without systemic symptoms) or Complicated (systemic symptoms)? @ -[acute Side effects of treatment? @ -[No] Exacerbation, Progression, or Severe Exacerbation? @ -[No] Poses a threat to life or bodily function? How? (Chest pain, [place], [place], pneumonia, PE, COPD, DKA, ARF, appy, cholecystitis, CVA, Diverticulitis, Homicidal, Suicidal, threat to staff... and all critical care pts) @ -[yes, CVA - Lab Data Result diagrams: 05/10/23 09:35 05/10/23 09:35 Lab Results 05/10/23 05/10/23 05/10/23 Range/Units 09:35 09:35 09:35 WBC 10.2 (3.8-10.6) k/uL RBC 4.47 (4.30-5.90) m/uL Hgb 13.3 (13.0-17.5) gm/dL Hct 40.3 (39.0-53.0) % MCV 90.2 (80.0-100.0) fL MCH 29.7 (25.0-35.0) pg MCHC 32.9 (31.0-37.0) g/dL RDW 16.7 H (11.5-15.5) % Plt Count 210 (150-450) k/uL MPV 7.5 Neutrophils % 88 % Lymphocytes % 8 % Monocytes % 3 % Eosinophils % 0 % Basophils % 0 % Neutrophils # 9.0 H (1.3-7.7) k/uL Lymphocytes # 0.8 L (1.0-4.8) k/uL Monocytes # 0.3 (0-1.0) k/uL Eosinophils # 0.0 (0-0.7) k/uL Basophils # 0.0 (0-0.2) k/uL Anisocytosis Slight PT 11.8 (10.0-12.5) sec INR 1.1 (<1.2) APTT 20.7 L (22.0-30.0) sec Sodium 144 (137-145) mmol/L Potassium 4.2 (3.5-5.1) mmol/L Chloride 109 H (98-107) mmol/L Carbon Dioxide 21 L (22-30) mmol/L Anion Gap 14 mmol/L BUN 39 H (9-20) mg/dL Creatinine 2.22 H (0.66-1.25) mg/dL Est GFR (CKD-EPI)AfAm 30 (>60 ml/min/1.73 sqM) Est GFR (CKD-EPI)NonAf 26 (>60 ml/min/1.73 sqM) Glucose 167 H (74-99) mg/dL Calcium 9.0 (8.4-10.2) mg/dL Total Bilirubin 1.0 (0.2-1.3) mg/dL AST 25 (17-59) U/L ALT 24 (4-49) U/L Alkaline Phosphatase 97 (38-126) U/L Creatine Kinase 60 (55-170) U/L Troponin I (0.000-0.034) ng/mL Total Protein 6.4 (6.3-8.2) g/dL Albumin 3.5 (3.5-5.0) g/dL 05/10/23 Range/Units 09:35 WBC (3.8-10.6) k/uL RBC (4.30-5.90) m/uL Hgb (13.0-17.5) gm/dL Hct (39.0-53.0) % MCV (80.0-100.0) fL MCH (25.0-35.0) pg MCHC (31.0-37.0) g/dL RDW (11.5-15.5) % Plt Count (150-450) k/uL MPV Neutrophils % % Lymphocytes % % Monocytes % % Eosinophils % % Basophils % % Neutrophils # (1.3-7.7) k/uL Lymphocytes # (1.0-4.8) k/uL Monocytes # (0-1.0) k/uL Eosinophils # (0-0.7) k/uL Basophils # (0-0.2) k/uL Anisocytosis PT (10.0-12.5) sec INR (<1.2) APTT (22.0-30.0) sec Sodium (137-145) mmol/L Potassium (3.5-5.1) mmol/L Chloride (98-107) mmol/L Carbon Dioxide (22-30) mmol/L Anion Gap mmol/L BUN (9-20) mg/dL Creatinine (0.66-1.25) mg/dL Est GFR (CKD-EPI)AfAm (>60 ml/min/1.73 sqM) Est GFR (CKD-EPI)NonAf (>60 ml/min/1.73 sqM) Glucose (74-99) mg/dL Calcium (8.4-10.2) mg/dL Total Bilirubin (0.2-1.3) mg/dL AST (17-59) U/L ALT (4-49) U/L Alkaline Phosphatase (38-126) U/L Creatine Kinase (55-170) U/L Troponin I 0.037 H* (0.000-0.034) ng/mL Total Protein (6.3-8.2) g/dL Albumin (3.5-5.0) g/dL Critical Care Time Critical Care Time: Yes Total Critical Care Time: 35 Disposition Clinical Impression: Cerebrovascular accident (CVA) Disposition: OTHER INSTITUTION NOT DEFINED Condition: Serious Is patient prescribed a controlled substance at d/c from ED?: No Referrals: Ryne Mcginnis MD [Primary Care Provider] - 1-2 days - Out of Hospital Transfer - Req. Specs Out of Hospital Transfer - Requested Specifics: Other Emergency Center ([facility])
--- NOTE | 2023-05-10 09:40 | CT ---
EXAMINATION TYPE: CT brain wo con for TPA DATE OF EXAM: 05/10/2023 COMPARISON: INDICATION: LEFT SIDED NEURO DEFCIT, VOMITING AND AMS. CODE STROKE DLP: 1230.6 mGycm, Automated exposure control for dose reduction was used. CONTRAST: None CT of the brain is performed utilizing 3 mm thick sections through the posterior fossa and 3 mm thick sections through the remaining calvarium. Study is performed within 24 hours of arrival to the hosp ital. No abnormal hyperdensity is present to suggest an acute intracranial hemorrhage. No mass lesion is evident. There is hypodensity within the posterior right parietal lobe. There is some loss of the posterior co rtex. There is diffuse lower density within the temporal lobe. There is effacement of sulci within th e temporal lobe this is a change from comparison. Acute temporal parietal infarction be considered. C orrelate with symptoms. There may be an old lacunar infarct within the inferior left cerebellum. Series 201 image 10 Ventricles and sulci are prominent for the patient age. There is effacement on the right at the temp oral parietal region. No midline shift is evident. No hydrocephalus is evident. Quadrigeminal plate a nd ambient cistern. Paranasal sinuses and mastoid air cells within the [id number] are clear. IMPRESSION: 1. Acute right temporal and posterior parietal infarct with effacement of sulci without midline keven ft. 2. Atrophy only from the acute infarct. 3. Chronic appearing deep white matter changes. Old lacunar infarct may be within the inferior medial cerebellum. 4. Report was called to the emergency room physician by Dr. Quintanilla by telephone 1625 hours 05/10/2023
--- NOTE | 2023-05-10 09:46 | XR ---
EXAMINATION TYPE: XR chest 1V portable DATE OF EXAM: 05/10/2023 COMPARISON: Chest x-ray March 26, 2023 HISTORY: Altered mental status and weakness TECHNIQUE: 2 frontal views of the chest are obtained. FINDINGS: There is persistently low lung volumes and mild cardiomegaly with new mild central vascula r congestion. . Lateral left basilar opacity remains present. . Suspect scarring and/or atelectasis. The osseous structures are intact. IMPRESSION: Possible CHF exacerbation/fluid overload state. Correlate clinically.
[2023-05-10 09:47] LABS: Anisocytosis Slight; Basophils % (A) 0 %; Eosinophils % (A) 0 %; HCT 40.3 % (39.0-53.0); HGB 13.3 gm/dL (13.0-17.5); Lymphocytes # (A) 0.8 k/uL (1.0-4.8); Lymphocytes % (A) 8 %; MCH 29.7 pg (25.0-35.0); MCHC 32.9 g/dL (31.0-37.0); MCV 90.2 fL (80.0-100.0); Mean Platelet Volume 7.5; Monocytes # (A) 0.3 k/uL (0-1.0); Monocytes % (A) 3 %; Neutrophils % (A) 88 %; Platelet Count 210 k/uL (150-450); RBC 4.47 m/uL (4.30-5.90); RDW 16.7 % (11.5-15.5); WBC 10.2 k/uL (3.8-10.6)
[2023-05-10] MEDS ORDERED: ASPIRIN 325 MG TAB PO STA (10:04)
[2023-05-10 10:07] LABS: INR 1.1 (<1.2); Prothrombin Time 11.8 sec (10.0-12.5)
[2023-05-10 10:10] LABS: ALT 24 U/L (4-49); AST 25 U/L (17-59); African American GFR (CKD) 30 (>60 ml/min/1.73 sqM); Albumin 3.5 g/dL (3.5-5.0); Alkaline Phosphatase 97 U/L (38-126); Anion Gap 14 mmol/L; Blood Urea Nitrogen 39 mg/dL (9-20); Carbon Dioxide 21 mmol/L (22-30); Chloride 109 mmol/L (98-107); Creatine Kinase 60 U/L (55-170); Glucose 167 mg/dL (74-99); Non-African American GFR(CKD) 26 (>60 ml/min/1.73 sqM); Potassium 4.2 mmol/L (3.5-5.1); Sodium 144 mmol/L (137-145); Total Protein 6.4 g/dL (6.3-8.2)
--- NOTE | 2023-05-10 10:17 | CT ---
EXAMINATION TYPE: CT angio head neck DATE OF EXAM: 05/10/2023 HISTORY: LEFT SIDED NEURO DEFCIT, VOMITING AND AMS. CODE STROKE COMPARISON: Prior CTA Head Neck March 26, 2023 CT DLP: 633.9 mGycm. Automated Exposure Control for Dose Reduction was Utilized. TECHNIQUE: CTA scan of the head and neck is performed with IV Contrast, patient injected with 65ML m L of Isovue 300, axial images are obtained, coronal and sagittal reformatted images are reviewed. 3D reconstructed images are created on an independent workstation and reviewed. FINDINGS: Carotid/Vascular Structures: Persistent normal three-vessel origin. No significant plaque or stenosis in the common or internal carotid arteries bilaterally. No significant change from prior. Patent ext ernal carotid arteries bilaterally. Vertebral arteries remain patent to the basilar junction. Pain an terior to indicating artery redemonstrated. Narrowing of the left middle cerebral artery again seen. Current exam suboptimal as 1 mm imaging not sent to PACS. No definitive new large vessel occlusion or aneurysm. Other: [id number] multilevel spurring and disc space narrowing C5-C6 and C6-C7 levels is presen t IMPRESSION: Unremarkable carotid and vertebral artery system. Suboptimal CTA head evaluation. Persist ent significant narrowing of the left middle cerebral artery. No obvious new large vessel occlusion o r aneurysm. NASCET criteria was used in interpretation of this exam?
[2023-05-10 10:22] LABS: Partial Thromboplastin Time 20.7 sec (22.0-30.0)
[2023-05-10 10:43] VITALS: BP 187/127; PULSE 121
== END 2023-05-10 10:46 | disposition other institution (70) ==
LOC: EC 09:02
DX: I63.9 Cerebral infarction, unspecified (principal); E11.9 Type 2 diabetes mellitus without complications; I11.0 Hypertensive heart disease with heart failure; I48.91 Unspecified atrial fibrillation; I50.9 Heart failure, unspecified; Z79.4 Long term (current) use of insulin; Z79.899 Other long term (current) drug therapy
CPT/HCPCS: 36415; 93005; 80053; 82550; 84484; 85025; 85610; 85730; 71045; 70496; 70450; 70498; 99291; 96360; Q9967